=== PATIENT | male | born 1965 | race African-American/Black ===

== ENCOUNTER 2021-09-08 11:46 | Inpatient (IN) | payer OTHER ==
[2021-09-08 12:23] VITALS: BMI 29.0
[2021-09-08] MEDS ORDERED: MAGNESIUM CITRATE 300 ML BOTTLE PO PRN (13:08)
[2021-09-08] MEDS ORDERED: BENZOCAINE/MENTHOL (CHLORASEPTIC ) LOZENGE MM PRN (13:08)
[2021-09-08] MEDS ORDERED: MAGNESIUM HYDROX 2400MG/30ML ORAL SUSPENSION 30 ML CUP PO PRN (13:08)
[2021-09-08] MEDS ORDERED: IBUPROFEN 400 MG TABLET (FP) PO PRN (13:08)
[2021-09-08] MEDS ORDERED: LOPERAMIDE HCL 2 MG CAPSULE PO PRN (13:08)
[2021-09-08] MEDS ORDERED: chlordiazePOXIDE HCL 25 MG CAPSULE PO PRN (13:08)
[2021-09-08] MEDS ORDERED: MAG HYDROX/AL HYDROX/SIMETH 30 ML UNIT-DOSE CUP PO PRN (13:08)
[2021-09-08] MEDS ORDERED: ONDANSETRON *ODT* 4 MG TABLET SL PRN (13:08)
[2021-09-08] MEDS ORDERED: ACETAMINOPHEN 325 MG TABLET (FP) PO PRN ×2 (13:08)
[2021-09-08] MEDS ORDERED: IBUPROFEN 600 MG TABLET (FP) PO PRN (13:08)
[2021-09-08] MEDS ORDERED: DICYCLOMINE HCL 10 MG CAPSULE PO PRN (13:08)
[2021-09-08] MEDS ORDERED: BISMUTH SUBSALICYLATE 262 MG/15 ML BTL PO PRN (13:08)
[2021-09-08] MEDS: chlordiazePOXIDE HCL 25 MG CAPSULE PO SCH ×2 (18:31→22:36)
[2021-09-08] MEDS: hydrOXYzine PAMOATE 25 MG CAPSULE (FP) PO SCH ×3 (18:31→22:56)
[2021-09-08] MEDS: THIAMINE HCL 100 MG TABLET (FP) PO SCH (22:36)
[2021-09-08] MEDS: MELATONIN 5 MG TABLETS PO SCH (22:36)
[2021-09-08] MEDS: METHOCARBAMOL 500 MG TABLET PO PRN (22:36)
[2021-09-09] MEDS: chlordiazePOXIDE HCL 25 MG CAPSULE PO SCH ×4 (06:07→22:35)
[2021-09-09] MEDS: hydrOXYzine PAMOATE 25 MG CAPSULE (FP) PO SCH ×5 (06:11→22:35)
[2021-09-09] MEDS ORDERED: ALBUTEROL SO4 HFA INHALER IH PRN (08:31)
[2021-09-09 11:02] LABS: HEMATOCRIT 42.5 % (35.4-49); HEMOGLOBIN 13.8 GM/dL (11.7-16.9); MCH 28.9 pg (25.7-33.7); MCHC 32.5 g/dl (32.0-35.9); MEAN PLT VOLUME 10.1 fl (7.5-11.1); PLATELET COUNT 161 10^3/uL (134-434); RBC 4.77 M/mm3 (4.00-5.60); RDW 14.8 % (11.9-15.9); WHITE BLOOD COUNT 4.9 K/mm3 (4.0-10.0)
[2021-09-09] MEDS: NICOTINE 14 MG/24 HOURS TOPICAL PATCH TD SCH (11:02)
[2021-09-09] MEDS: PRENATAL VITAMINS W/ FOLIC ACID TABLET (FP) PO SCH (11:02)
[2021-09-09 11:24] LABS: BILIRUBIN,TOTAL 0.7 mg/dL (0.2-1); CREATININE 0.9 mg/dL (0.55-1.3)
[2021-09-09 11:25] LABS: BLOOD UREA NITROGEN 12.6 mg/dL (7-18)
[2021-09-09 11:26] LABS: ALBUMIN 3.7 g/dl (3.4-5.0); CALCIUM 9.3 mg/dL (8.5-10.1)
[2021-09-09 11:33] LABS: TOT PROT 7.6 g/dl (6.4-8.2)
[2021-09-09] MEDS: THIAMINE HCL 100 MG TABLET (FP) PO SCH (22:34)
[2021-09-09] MEDS: MELATONIN 5 MG TABLETS PO SCH (22:34)
[2021-09-09] MEDS: METHOCARBAMOL 500 MG TABLET PO PRN (22:34)
[2021-09-10] MEDS: hydrOXYzine PAMOATE 25 MG CAPSULE (FP) PO SCH ×2 (05:51→10:40)
[2021-09-10] MEDS: chlordiazePOXIDE HCL 25 MG CAPSULE PO SCH ×4 (05:52→22:48)
[2021-09-10] MEDS: PRENATAL VITAMINS W/ FOLIC ACID TABLET (FP) PO SCH (10:40)
[2021-09-10] MEDS: NICOTINE 14 MG/24 HOURS TOPICAL PATCH TD SCH (10:40)
[2021-09-10] MEDS: hydrOXYzine PAMOATE 25 MG CAPSULE (FP) PO PRN ×2 (18:19→22:47)
[2021-09-10] MEDS: THIAMINE HCL 100 MG TABLET (FP) PO SCH (22:47)
[2021-09-10] MEDS: MELATONIN 5 MG TABLETS PO SCH (22:47)
[2021-09-11] MEDS ORDERED: chlordiazePOXIDE HCL 10 MG CAPSULE PO PRN
[2021-09-11] MEDS: chlordiazePOXIDE HCL 10 MG CAPSULE PO SCH ×4 (05:47→22:30)
[2021-09-11] MEDS: NICOTINE 14 MG/24 HOURS TOPICAL PATCH TD SCH (10:56)
[2021-09-11] MEDS: PRENATAL VITAMINS W/ FOLIC ACID TABLET (FP) PO SCH (10:56)
[2021-09-11] MEDS: THIAMINE HCL 100 MG TABLET (FP) PO SCH (22:29)
[2021-09-11] MEDS: MELATONIN 5 MG TABLETS PO SCH (22:30)
[2021-09-12] MEDS: chlordiazePOXIDE HCL 10 MG CAPSULE PO SCH ×2 (06:18→17:48)
[2021-09-12] MEDS: PRENATAL VITAMINS W/ FOLIC ACID TABLET (FP) PO SCH (10:09)
[2021-09-12] MEDS: METHOCARBAMOL 500 MG TABLET PO PRN (10:10)
[2021-09-12] MEDS: hydrOXYzine PAMOATE 25 MG CAPSULE (FP) PO PRN (10:10)
[2021-09-12] MEDS: NICOTINE 14 MG/24 HOURS TOPICAL PATCH TD SCH (10:11)
[2021-09-12] MEDS ORDERED: NICOTINE 10 MG CARTRIDGE (INHALER) IH PRN (19:28)
[2021-09-12] MEDS: MELATONIN 5 MG TABLETS PO SCH (22:43)
[2021-09-12] MEDS: THIAMINE HCL 100 MG TABLET (FP) PO SCH (22:43)
[2021-09-13] MEDS ORDERED: chlordiazePOXIDE HCL 10 MG CAPSULE PO ONE (05:00)
[2021-09-13 09:33] VITALS: BP 134/79; PULSE 79; TEMP 98.1
[2021-09-13] MEDS: NICOTINE 14 MG/24 HOURS TOPICAL PATCH TD SCH (11:12)
[2021-09-13] MEDS: PRENATAL VITAMINS W/ FOLIC ACID TABLET (FP) PO SCH (11:13)
== END 2021-09-13 12:05 | disposition other institution (70) | DRG 774 ==
LOC: YASAS 11:46 → Y6N 15:12
PROVIDERS: ADMIT Allergy & Immunology; ATTEND Surgery
PROC: HZ2ZZZZ Detoxification Services for Substance Abuse Treatment (ICD-10-PCS; principal; 2021-09-08)
DX: F10.230 Alcohol dependence with withdrawal, uncomplicated (principal); F14.20 Cocaine dependence, uncomplicated; F17.210 Nicotine dependence, cigarettes, uncomplicated; E78.5 Hyperlipidemia, unspecified; I10 Essential (primary) hypertension; J45.909 Unspecified asthma, uncomplicated; M16.12 Unilateral primary osteoarthritis, left hip; R73.03 Prediabetes; Z99.89 Dependence on other enabling machines and devices; Z91.013 Allergy to seafood; Z91.14 Patient's other noncompliance with medication regimen
CPT/HCPCS: 36415; 80053; 85027; 86780; C9803-CS; U0003; U0005

== ENCOUNTER 2022-01-02 17:36 | Inpatient (IN) | payer OTHER ==
[2022-01-02 18:06] VITALS: BMI 29.4
[2022-01-02] MEDS ORDERED: guaiFENesin 200 MG/10 ML 10 ML UNIT-DOSE CUPS PO PRN (22:26)
[2022-01-02] MEDS ORDERED: MAGNESIUM CITRATE 300 ML BOTTLE PO PRN (22:26)
[2022-01-02] MEDS ORDERED: LOPERAMIDE HCL 2 MG CAPSULE PO PRN (22:26)
[2022-01-02] MEDS ORDERED: NICOTINE POLACRILEX 2 MG GUM BC PRN (22:26)
[2022-01-02] MEDS ORDERED: ACETAMINOPHEN 325 MG TABLET (FP) PO PRN (22:26)
[2022-01-02] MEDS ORDERED: MAGNESIUM HYDROX 2400MG/30ML ORAL SUSPENSION 30 ML CUP PO PRN (22:26)
[2022-01-02] MEDS ORDERED: P-EPHED 60MG/TRIPROLIDI 2.5MG TABLET PO PRN (22:26)
[2022-01-02] MEDS ORDERED: MAG HYDROX/AL HYDROX/SIMETH 30 ML UNIT-DOSE CUP PO PRN (22:26)
[2022-01-03] MEDS: MELATONIN 5 MG TABLETS PO SCH ×2 (00:40→21:29)
[2022-01-03] MEDS: IBUPROFEN 400 MG TABLET (FP) PO PRN ×2 (00:40→21:30)
[2022-01-03 09:25] LABS: EPI CELLS 17 /uL (0-25.1); HYALINE CASTS 2 /uL (0-3.1); URINE APPEARANCE CLEAR; URINE BACTERIA 648 /uL (0-1359); URINE BILIRUBIN NEGATIVE (NEGATIVE); URINE COLOR YELLOW; URINE GLUCOSE (UA) NEGATIVE (NEGATIVE); URINE KETONE NEGATIVE (NEGATIVE); URINE LEUK ESTERASE 2+ (NEGATIVE); URINE NITRITE NEGATIVE (NEGATIVE); URINE PROTEIN NEGATIVE (NEGATIVE); URINE RBC 3 /uL (0-23.9); URINE WBC 182 /uL (0-25.8)
[2022-01-03] MEDS: PRENATAL VITAMINS W/ FOLIC ACID TABLET (FP) PO SCH (09:44)
[2022-01-03] MEDS: NICOTINE 14 MG/24 HOURS TOPICAL PATCH TD SCH (09:45)
[2022-01-03 11:29] LABS: HEMATOCRIT 45.1 % (35.4-49); HEMOGLOBIN 14.6 GM/dL (11.7-16.9); MCH 29.4 pg (25.7-33.7); MCHC 32.3 g/dl (32.0-35.9); MEAN CELL VOLUME 91.2 fl (80-96); MEAN PLT VOLUME 9.7 fl (7.5-11.1); PLATELET COUNT 193 10^3/uL (134-434); RBC 4.94 M/mm3 (4.00-5.60); RDW 14.9 % (11.9-15.9); WHITE BLOOD COUNT 6.7 K/mm3 (4.0-10.0)
[2022-01-03 11:41] LABS: CALCIUM 8.8 mg/dL (8.5-10.1)
[2022-01-03 11:42] LABS: ALBUMIN 3.3 g/dl (3.4-5.0); BLOOD UREA NITROGEN 12.8 mg/dL (7-18)
[2022-01-03 11:44] LABS: CREATININE 0.9 mg/dL (0.55-1.3)
[2022-01-03 11:46] LABS: BILIRUBIN,TOTAL 0.5 mg/dL (0.2-1); TOT PROT 6.8 g/dl (6.4-8.2)
[2022-01-03 12:49] LABS: HIV INTERPRETATION NEGATIVE (NEGATIVE)
[2022-01-03] MEDS: THIAMINE HCL 100 MG TABLET (FP) PO SCH (21:29)
[2022-01-04] MEDS: NICOTINE 14 MG/24 HOURS TOPICAL PATCH TD SCH (09:52)
[2022-01-04] MEDS: PRENATAL VITAMINS W/ FOLIC ACID TABLET (FP) PO SCH (09:52)
[2022-01-04] MEDS: IBUPROFEN 400 MG TABLET (FP) PO PRN (09:53)
[2022-01-04] MEDS: MELATONIN 5 MG TABLETS PO SCH (21:27)
[2022-01-04] MEDS: THIAMINE HCL 100 MG TABLET (FP) PO SCH (21:28)
[2022-01-05] MEDS: IBUPROFEN 400 MG TABLET (FP) PO PRN (06:38)
[2022-01-05] MEDS: NICOTINE 14 MG/24 HOURS TOPICAL PATCH TD SCH (10:59)
[2022-01-05] MEDS: PRENATAL VITAMINS W/ FOLIC ACID TABLET (FP) PO SCH (11:00)
[2022-01-05] MEDS: MELATONIN 5 MG TABLETS PO SCH (21:33)
[2022-01-05] MEDS: THIAMINE HCL 100 MG TABLET (FP) PO SCH (21:33)
[2022-01-06] MEDS: NICOTINE 14 MG/24 HOURS TOPICAL PATCH TD SCH (09:51)
[2022-01-06] MEDS: PRENATAL VITAMINS W/ FOLIC ACID TABLET (FP) PO SCH (09:51)
[2022-01-06] MEDS: IBUPROFEN 400 MG TABLET (FP) PO PRN (09:53)
[2022-01-06] MEDS: THIAMINE HCL 100 MG TABLET (FP) PO SCH (21:21)
[2022-01-06] MEDS: MELATONIN 5 MG TABLETS PO SCH (21:21)
[2022-01-07] MEDS: PRENATAL VITAMINS W/ FOLIC ACID TABLET (FP) PO SCH (10:00)
[2022-01-07] MEDS: NICOTINE 14 MG/24 HOURS TOPICAL PATCH TD SCH (10:00)
[2022-01-07] MEDS: MELATONIN 5 MG TABLETS PO SCH (21:39)
[2022-01-07] MEDS: THIAMINE HCL 100 MG TABLET (FP) PO SCH (21:40)
[2022-01-08] MEDS: NICOTINE 14 MG/24 HOURS TOPICAL PATCH TD SCH (09:54)
[2022-01-08] MEDS: PRENATAL VITAMINS W/ FOLIC ACID TABLET (FP) PO SCH (09:54)
[2022-01-08] MEDS: THIAMINE HCL 100 MG TABLET (FP) PO SCH (21:23)
[2022-01-08] MEDS: MELATONIN 5 MG TABLETS PO SCH (21:23)
[2022-01-09] MEDS: PRENATAL VITAMINS W/ FOLIC ACID TABLET (FP) PO SCH (09:51)
[2022-01-09] MEDS: NICOTINE 14 MG/24 HOURS TOPICAL PATCH TD SCH (09:51)
[2022-01-09] MEDS: THIAMINE HCL 100 MG TABLET (FP) PO SCH (21:27)
[2022-01-09] MEDS: MELATONIN 5 MG TABLETS PO SCH (21:27)
[2022-01-10 07:22] VITALS: RESP 18
[2022-01-10] MEDS: PRENATAL VITAMINS W/ FOLIC ACID TABLET (FP) PO SCH (09:58)
[2022-01-10] MEDS: NICOTINE 14 MG/24 HOURS TOPICAL PATCH TD SCH (09:58)
[2022-01-10] MEDS: MELATONIN 5 MG TABLETS PO SCH (21:18)
[2022-01-10] MEDS: THIAMINE HCL 100 MG TABLET (FP) PO SCH (21:18)
[2022-01-11] MEDS: PRENATAL VITAMINS W/ FOLIC ACID TABLET (FP) PO SCH (09:59)
[2022-01-11] MEDS: NICOTINE 14 MG/24 HOURS TOPICAL PATCH TD SCH (09:59)
[2022-01-11] MEDS: MELATONIN 5 MG TABLETS PO SCH (21:29)
[2022-01-11] MEDS: THIAMINE HCL 100 MG TABLET (FP) PO SCH (21:29)
[2022-01-12] MEDS: PRENATAL VITAMINS W/ FOLIC ACID TABLET (FP) PO SCH (09:54)
[2022-01-12] MEDS: NICOTINE 14 MG/24 HOURS TOPICAL PATCH TD SCH (09:54)
[2022-01-12] MEDS: MELATONIN 5 MG TABLETS PO SCH (21:26)
[2022-01-12] MEDS: THIAMINE HCL 100 MG TABLET (FP) PO SCH (21:26)
[2022-01-13 07:02] VITALS: BP 113/77; PULSE 81; TEMP 97.3
[2022-01-13] MEDS: NICOTINE 14 MG/24 HOURS TOPICAL PATCH TD SCH (09:45)
[2022-01-13] MEDS: PRENATAL VITAMINS W/ FOLIC ACID TABLET (FP) PO SCH (09:45)
[2022-01-13] MEDS: IBUPROFEN 400 MG TABLET (FP) PO PRN (09:46)
== END 2022-01-13 10:15 | disposition home or self-care (01) | DRG 772 ==
LOC: YASAS 17:36 → Y5N 01-03
PROVIDERS: ADMIT Allergy & Immunology; ATTEND Psychiatry & Neurology Pain Medicine
PROC: HZ42ZZZ Group Counseling for Substance Abuse Treatment, Cognitive-Behavioral (ICD-10-PCS; principal; 2022-01-03)
DX: F10.20 Alcohol dependence, uncomplicated (principal); F14.20 Cocaine dependence, uncomplicated; F17.210 Nicotine dependence, cigarettes, uncomplicated; F32.A Depression, unspecified; F41.9 Anxiety disorder, unspecified; I10 Essential (primary) hypertension; E78.5 Hyperlipidemia, unspecified; H54.61 Unqualified visual loss, right eye, normal vision left eye; J45.909 Unspecified asthma, uncomplicated; R73.03 Prediabetes; M16.12 Unilateral primary osteoarthritis, left hip; Z99.89 Dependence on other enabling machines and devices; Z91.010 Allergy to peanuts; Z91.013 Allergy to seafood
CPT/HCPCS: 36415; 80053; 81003; 82962; 85027; 86780; 87389; 87811; C9803-CS; U0003; U0005

== ENCOUNTER 2022-02-18 13:24 | Inpatient (IN) | payer OTHER ==
[2022-02-18] MEDS ORDERED: hydrOXYzine PAMOATE 25 MG CAPSULE (FP) PO PRN (14:02)
[2022-02-18] MEDS ORDERED: ACETAMINOPHEN 325 MG TABLET (FP) PO PRN (14:02)
[2022-02-18] MEDS ORDERED: ONDANSETRON *ODT* 4 MG TABLET SL PRN (14:02)
[2022-02-18] MEDS ORDERED: diazePAM 5 MG TABLET PO PRN (14:02)
[2022-02-18] MEDS ORDERED: NICOTINE POLACRILEX 2 MG GUM BUC PRN (14:02)
[2022-02-18] MEDS ORDERED: NICOTINE 10 MG CARTRIDGE (INHALER) IH PRN (14:02)
[2022-02-18] MEDS ORDERED: BENZOCAINE/MENTHOL (CHLORASEPTIC ) LOZENGE MM PRN (14:02)
[2022-02-18] MEDS ORDERED: DICYCLOMINE HCL 10 MG CAPSULE PO PRN (14:02)
[2022-02-18] MEDS ORDERED: LOPERAMIDE HCL 2 MG CAPSULE PO PRN (14:02)
[2022-02-18] MEDS ORDERED: NICOTINE 7 MG/24 HOURS TOPICAL PATCH TD PRN (14:02)
[2022-02-18] MEDS ORDERED: IBUPROFEN 400 MG TABLET (FP) PO PRN (14:02)
[2022-02-18] MEDS ORDERED: MAGNESIUM HYDROX 2400MG/30ML ORAL SUSPENSION 30 ML CUP PO PRN (14:02)
[2022-02-18] MEDS ORDERED: METHOCARBAMOL 500 MG TABLET PO PRN (14:02)
[2022-02-18] MEDS ORDERED: MAG HYDROX/AL HYDROX/SIMETH 30 ML UNIT-DOSE CUP PO PRN (14:02)
[2022-02-18] MEDS ORDERED: BISMUTH SUBSALICYLATE 262 MG/15 ML BTL PO PRN (14:02)
[2022-02-18] MEDS ORDERED: POLYETHYLENE GLYCOL (HEALTHYLAX) 3350 17 GM PACKET PO PRN (14:02)
[2022-02-18 14:09] VITALS: BMI 29.4
[2022-02-18] MEDS: FAMOTIDINE 20 MG TABLET PO SCH (22:48)
[2022-02-18] MEDS: traZODone HCL 50 MG TABLET (FP) PO SCH (22:48)
[2022-02-18] MEDS: THIAMINE HCL 100 MG TABLET (FP) PO SCH (22:48)
[2022-02-18] MEDS: MELATONIN 5 MG TABLETS PO SCH (22:48)
[2022-02-18] MEDS: diazePAM 5 MG TABLET PO SCH (22:49)
[2022-02-19] MEDS: diazePAM 5 MG TABLET PO SCH ×2 (05:27→14:00)
[2022-02-19] MEDS: ACETAMINOPHEN 325 MG TABLET (FP) PO PRN (05:28)
[2022-02-19] MEDS ORDERED: ALBUTEROL SO4 HFA INHALER IH PRN (10:21)
[2022-02-19] MEDS: PRENATAL VITAMINS W/ FOLIC ACID TABLET (FP) PO SCH (10:40)
[2022-02-19] MEDS: FAMOTIDINE 20 MG TABLET PO SCH ×2 (10:41→21:56)
[2022-02-19 11:39] LABS: HEMATOCRIT 42.2 % (35.4-49); HEMOGLOBIN 13.2 GM/dL (11.7-16.9); MCH 28.6 pg (25.7-33.7); MCHC 31.3 g/dl (32.0-35.9); MEAN CELL VOLUME 91.6 fl (80-96); MEAN PLT VOLUME 9.4 fl (7.5-11.1); PLATELET COUNT 171 10^3/uL (134-434); RBC 4.61 M/mm3 (4.00-5.60); RDW 14.6 % (11.9-15.9); WHITE BLOOD COUNT 6.7 K/mm3 (4.0-10.0)
[2022-02-19 11:47] LABS: CALCIUM 8.6 mg/dL (8.5-10.1)
[2022-02-19 11:48] LABS: ALBUMIN 2.9 g/dl (3.4-5.0); BLOOD UREA NITROGEN 11.3 mg/dL (7-18)
[2022-02-19 11:51] LABS: CREATININE 0.9 mg/dL (0.55-1.3)
[2022-02-19 11:53] LABS: BILIRUBIN,TOTAL 0.3 mg/dL (0.2-1); TOT PROT 6.2 g/dl (6.4-8.2)
[2022-02-19] MEDS: FLUTICASONE/UMECLIDIN/VILANTER(200-62.5-25 TRELEGY ELLIPTA) INAHLER IH SCH (11:55)
[2022-02-19] MEDS ORDERED: FLU VACC QS2022-23(6MOS UP)/PF 60 MCG/0.5 ML SYRINGE IM ONE (12:00)
[2022-02-19] MEDS: traZODone HCL 50 MG TABLET (FP) PO SCH (21:56)
[2022-02-19] MEDS: MELATONIN 5 MG TABLETS PO SCH (21:56)
[2022-02-19] MEDS: THIAMINE HCL 100 MG TABLET (FP) PO SCH (21:56)
[2022-02-20] MEDS: diazePAM 5 MG TABLET PO SCH ×3 (06:46→22:30)
[2022-02-20] MEDS: PRENATAL VITAMINS W/ FOLIC ACID TABLET (FP) PO SCH (10:44)
[2022-02-20] MEDS: FAMOTIDINE 20 MG TABLET PO SCH ×2 (10:44→22:30)
[2022-02-20] MEDS: FLUTICASONE/UMECLIDIN/VILANTER(200-62.5-25 TRELEGY ELLIPTA) INAHLER IH SCH (10:45)
[2022-02-20] MEDS: LACTULOSE 20 GM/30 ML UDC (FOR ORAL USE ONLY) PO SCH ×3 (13:59→22:30)
[2022-02-20] MEDS: MELATONIN 5 MG TABLETS PO SCH (22:29)
[2022-02-20] MEDS: THIAMINE HCL 100 MG TABLET (FP) PO SCH (22:29)
[2022-02-20] MEDS: traZODone HCL 50 MG TABLET (FP) PO SCH (22:30)
[2022-02-21] MEDS: diazePAM 5 MG TABLET PO SCH ×3 (05:48→17:35)
[2022-02-21] MEDS: FAMOTIDINE 20 MG TABLET PO SCH ×2 (10:12→22:21)
[2022-02-21] MEDS: PRENATAL VITAMINS W/ FOLIC ACID TABLET (FP) PO SCH (10:12)
[2022-02-21] MEDS: LACTULOSE 20 GM/30 ML UDC (FOR ORAL USE ONLY) PO SCH ×4 (10:13→22:21)
[2022-02-21] MEDS: FLUTICASONE/UMECLIDIN/VILANTER(200-62.5-25 TRELEGY ELLIPTA) INAHLER IH SCH (10:13)
[2022-02-21] MEDS: ACETAMINOPHEN 325 MG TABLET (FP) PO PRN (10:14)
[2022-02-21 13:47] VITALS: RESP 18
[2022-02-21] MEDS: traZODone HCL 50 MG TABLET (FP) PO SCH (22:21)
[2022-02-21] MEDS: MELATONIN 5 MG TABLETS PO SCH (22:21)
[2022-02-21] MEDS: IBUPROFEN 600 MG TABLET (FP) PO PRN (22:21)
[2022-02-21] MEDS: THIAMINE HCL 100 MG TABLET (FP) PO SCH (22:21)
[2022-02-22] MEDS ORDERED: diazePAM 5 MG TABLET PO ONE (06:00)
[2022-02-22] MEDS: FAMOTIDINE 20 MG TABLET PO SCH (10:55)
[2022-02-22] MEDS: FLUTICASONE/UMECLIDIN/VILANTER(200-62.5-25 TRELEGY ELLIPTA) INAHLER IH SCH (10:55)
[2022-02-22] MEDS: LACTULOSE 20 GM/30 ML UDC (FOR ORAL USE ONLY) PO SCH ×2 (10:55→14:42)
[2022-02-22] MEDS: PRENATAL VITAMINS W/ FOLIC ACID TABLET (FP) PO SCH (10:55)
[2022-02-22] MEDS: IBUPROFEN 600 MG TABLET (FP) PO PRN (12:06)
[2022-02-22 13:22] VITALS: BP 132/86; PULSE 92; TEMP 96.8
== END 2022-02-22 15:27 | disposition other institution (70) | DRG 774 ==
LOC: YASAS 13:24 → Y6N 14:33
PROVIDERS: ADMIT Allergy & Immunology; ATTEND Surgery
PROC: HZ2ZZZZ Detoxification Services for Substance Abuse Treatment (ICD-10-PCS; principal; 2022-02-18)
DX: F10.230 Alcohol dependence with withdrawal, uncomplicated (principal); F14.20 Cocaine dependence, uncomplicated; F17.210 Nicotine dependence, cigarettes, uncomplicated; F19.24 Other psychoactive substance dependence with psychoactive substance-induced mood disorder; F39 Unspecified mood [affective] disorder; F31.9 Bipolar disorder, unspecified; F41.9 Anxiety disorder, unspecified; I10 Essential (primary) hypertension; J45.20 Mild intermittent asthma, uncomplicated; K21.9 Gastro-esophageal reflux disease without esophagitis; M16.12 Unilateral primary osteoarthritis, left hip; R79.89 Other specified abnormal findings of blood chemistry; R73.03 Prediabetes; Z91.013 Allergy to seafood; Z91.010 Allergy to peanuts; Z59.00 Homelessness unspecified
CPT/HCPCS: 36415; 80053; 82140; 85027; 86780; 87811; 93005; 93010; C9803-CS; U0003; U0005

== ENCOUNTER 2022-02-22 15:32 | Inpatient (IN) | payer OTHER ==
[2022-02-22] MEDS ORDERED: hydrOXYzine PAMOATE 25 MG CAPSULE (FP) PO PRN (15:46)
[2022-02-22] MEDS ORDERED: NICOTINE 10 MG CARTRIDGE (INHALER) IH PRN (15:46)
[2022-02-22] MEDS ORDERED: BENZOCAINE/MENTHOL (CHLORASEPTIC ) LOZENGE MM PRN (15:46)
[2022-02-22] MEDS ORDERED: MAG HYDROX/AL HYDROX/SIMETH 30 ML UNIT-DOSE CUP PO PRN (15:46)
[2022-02-22] MEDS ORDERED: guaiFENesin 200 MG/10 ML 10 ML UNIT-DOSE CUPS PO PRN (15:46)
[2022-02-22] MEDS ORDERED: POLYETHYLENE GLYCOL (HEALTHYLAX) 3350 17 GM PACKET PO PRN (15:46)
[2022-02-22] MEDS ORDERED: MAGNESIUM HYDROX 2400MG/30ML ORAL SUSPENSION 30 ML CUP PO PRN (15:46)
[2022-02-22] MEDS ORDERED: NICOTINE 7 MG/24 HOURS TOPICAL PATCH TD PRN (15:46)
[2022-02-22] MEDS ORDERED: P-EPHED 60MG/TRIPROLIDI 2.5MG TABLET PO PRN (15:46)
[2022-02-22] MEDS ORDERED: LOPERAMIDE HCL 2 MG CAPSULE PO PRN (15:46)
[2022-02-22] MEDS ORDERED: NICOTINE POLACRILEX 2 MG GUM BUC PRN (15:46)
[2022-02-22] MEDS ORDERED: FLUTICASONE/UMECLIDIN/VILANTER(200-62.5-25 TRELEGY ELLIPTA) INAHLER IH SCH (16:00)
[2022-02-22] MEDS: THIAMINE HCL 100 MG TABLET (FP) PO SCH (21:33)
[2022-02-22] MEDS: MELATONIN 5 MG TABLETS PO SCH (21:34)
[2022-02-23] MEDS ORDERED: PRENATAL VITAMINS W/ FOLIC ACID TABLET (FP) PO SCH (10:00)
[2022-02-23] MEDS: MELATONIN 5 MG TABLETS PO SCH (21:50)
[2022-02-23] MEDS: THIAMINE HCL 100 MG TABLET (FP) PO SCH (21:50)
[2022-02-24] MEDS ORDERED: LIDOCAINE 5% TOPICAL PATCH TP SCH (10:00)
[2022-02-24] MEDS: FAMOTIDINE 20 MG TABLET PO SCH ×2 (10:22→21:18)
[2022-02-24] MEDS: RIFAXIMIN 550 MG TABLET PO SCH ×2 (10:22→21:18)
[2022-02-24] MEDS: FLUTICASONE/UMECLIDIN/VILANTER(200-62.5-25 TRELEGY ELLIPTA) INAHLER IH SCH (10:23)
[2022-02-24] MEDS: IBUPROFEN 400 MG TABLET (FP) PO PRN (10:25)
[2022-02-24] MEDS ORDERED: LIDOCAINE 5% TOPICAL PATCH TP PRN (14:44)
[2022-02-24] MEDS: THIAMINE HCL 100 MG TABLET (FP) PO SCH (21:17)
[2022-02-24] MEDS: MELATONIN 5 MG TABLETS PO SCH (21:17)
[2022-02-24] MEDS: traZODone HCL 50 MG TABLET (FP) PO SCH (21:18)
[2022-02-24] MEDS: LIDOCAINE PATCH REMOVAL MC SCH (21:19)
[2022-02-25] MEDS: FLUTICASONE/UMECLIDIN/VILANTER(200-62.5-25 TRELEGY ELLIPTA) INAHLER IH SCH (06:53)
[2022-02-25] MEDS: FAMOTIDINE 20 MG TABLET PO SCH ×3 (09:54→21:32)
[2022-02-25] MEDS: RIFAXIMIN 550 MG TABLET PO SCH ×3 (09:54→21:32)
[2022-02-25] MEDS: IBUPROFEN 400 MG TABLET (FP) PO PRN ×2 (09:55→21:33)
[2022-02-25] MEDS: traZODone HCL 50 MG TABLET (FP) PO SCH (21:26)
[2022-02-25] MEDS: MELATONIN 5 MG TABLETS PO SCH (21:27)
[2022-02-25] MEDS: LIDOCAINE PATCH REMOVAL MC SCH (21:27)
[2022-02-25] MEDS: THIAMINE HCL 100 MG TABLET (FP) PO SCH (21:27)
[2022-02-26] MEDS: FLUTICASONE/UMECLIDIN/VILANTER(200-62.5-25 TRELEGY ELLIPTA) INAHLER IH SCH (07:08)
[2022-02-26] MEDS: RIFAXIMIN 550 MG TABLET PO SCH ×2 (10:25→21:20)
[2022-02-26] MEDS: FAMOTIDINE 20 MG TABLET PO SCH ×2 (10:25→21:20)
[2022-02-26] MEDS: THIAMINE HCL 100 MG TABLET (FP) PO SCH (21:19)
[2022-02-26] MEDS: IBUPROFEN 400 MG TABLET (FP) PO PRN (21:20)
[2022-02-26] MEDS: MELATONIN 5 MG TABLETS PO SCH (21:24)
[2022-02-26] MEDS: LIDOCAINE PATCH REMOVAL MC SCH (21:24)
[2022-02-26] MEDS: traZODone HCL 50 MG TABLET (FP) PO SCH (21:24)
[2022-02-27] MEDS: FLUTICASONE/UMECLIDIN/VILANTER(200-62.5-25 TRELEGY ELLIPTA) INAHLER IH SCH (07:56)
[2022-02-27] MEDS: RIFAXIMIN 550 MG TABLET PO SCH ×2 (10:01→21:20)
[2022-02-27] MEDS: FAMOTIDINE 20 MG TABLET PO SCH ×2 (10:02→21:21)
[2022-02-27] MEDS: THIAMINE HCL 100 MG TABLET (FP) PO SCH (21:20)
[2022-02-27] MEDS: traZODone HCL 50 MG TABLET (FP) PO SCH (21:21)
[2022-02-27] MEDS: LIDOCAINE PATCH REMOVAL MC SCH (21:21)
[2022-02-27] MEDS: MELATONIN 5 MG TABLETS PO SCH (21:21)
[2022-02-27] MEDS: ACETAMINOPHEN 325 MG TABLET (FP) PO PRN (21:23)
[2022-02-28] MEDS: FLUTICASONE/UMECLIDIN/VILANTER(200-62.5-25 TRELEGY ELLIPTA) INAHLER IH SCH (09:56)
[2022-02-28] MEDS: RIFAXIMIN 550 MG TABLET PO SCH ×2 (09:56→21:20)
[2022-02-28] MEDS: FAMOTIDINE 20 MG TABLET PO SCH ×2 (09:56→21:20)
[2022-02-28] MEDS: MELATONIN 5 MG TABLETS PO SCH (21:20)
[2022-02-28] MEDS: THIAMINE HCL 100 MG TABLET (FP) PO SCH (21:20)
[2022-02-28] MEDS: traZODone HCL 50 MG TABLET (FP) PO SCH (21:20)
[2022-02-28] MEDS: ACETAMINOPHEN 325 MG TABLET (FP) PO PRN (21:22)
[2022-02-28] MEDS: LIDOCAINE PATCH REMOVAL MC SCH (22:26)
[2022-03-01] MEDS: FLUTICASONE/UMECLIDIN/VILANTER(200-62.5-25 TRELEGY ELLIPTA) INAHLER IH SCH (10:02)
[2022-03-01] MEDS: FAMOTIDINE 20 MG TABLET PO SCH ×2 (10:02→21:18)
[2022-03-01] MEDS: PRENATAL VITAMINS W/ FOLIC ACID TABLET (FP) PO PRN (10:02)
[2022-03-01] MEDS: IBUPROFEN 400 MG TABLET (FP) PO PRN (10:04)
[2022-03-01] MEDS: MELATONIN 5 MG TABLETS PO SCH (21:18)
[2022-03-01] MEDS: THIAMINE HCL 100 MG TABLET (FP) PO SCH (21:18)
[2022-03-01] MEDS: traZODone HCL 50 MG TABLET (FP) PO SCH (21:18)
[2022-03-01] MEDS: LIDOCAINE PATCH REMOVAL MC SCH (21:18)
[2022-03-02 05:58] VITALS: BP 109/68; PULSE 84; RESP 19; TEMP 97.4
[2022-03-02] MEDS: FLUTICASONE/UMECLIDIN/VILANTER(200-62.5-25 TRELEGY ELLIPTA) INAHLER IH SCH (09:26)
[2022-03-02] MEDS: FAMOTIDINE 20 MG TABLET PO SCH ×2 (09:27→21:10)
[2022-03-02] MEDS: LIDOCAINE PATCH REMOVAL MC SCH (21:10)
[2022-03-02] MEDS: MELATONIN 5 MG TABLETS PO SCH (21:10)
[2022-03-02] MEDS: THIAMINE HCL 100 MG TABLET (FP) PO SCH (21:10)
[2022-03-02] MEDS: traZODone HCL 50 MG TABLET (FP) PO SCH (21:11)
[2022-03-03] MEDS: FAMOTIDINE 20 MG TABLET PO SCH (09:02)
[2022-03-03] MEDS: PRENATAL VITAMINS W/ FOLIC ACID TABLET (FP) PO PRN (09:02)
[2022-03-03] MEDS: FLUTICASONE/UMECLIDIN/VILANTER(200-62.5-25 TRELEGY ELLIPTA) INAHLER IH SCH (09:02)
[2022-03-03] MEDS: IBUPROFEN 400 MG TABLET (FP) PO PRN (09:03)
== END 2022-03-03 09:26 | disposition home or self-care (01) | DRG 772 ==
LOC: YASAS 15:32 → Y3E 15:33
PROVIDERS: ADMIT Allergy & Immunology; ATTEND Psychiatry & Neurology Pain Medicine
PROC: HZ42ZZZ Group Counseling for Substance Abuse Treatment, Cognitive-Behavioral (ICD-10-PCS; principal; 2022-02-22)
DX: F10.20 Alcohol dependence, uncomplicated (principal); F14.20 Cocaine dependence, uncomplicated; F12.20 Cannabis dependence, uncomplicated; F17.210 Nicotine dependence, cigarettes, uncomplicated; F19.24 Other psychoactive substance dependence with psychoactive substance-induced mood disorder; F41.9 Anxiety disorder, unspecified; E72.20 Disorder of urea cycle metabolism, unspecified; E78.5 Hyperlipidemia, unspecified; I10 Essential (primary) hypertension; J45.909 Unspecified asthma, uncomplicated; M16.12 Unilateral primary osteoarthritis, left hip; R79.89 Other specified abnormal findings of blood chemistry; R94.5 Abnormal results of liver function studies; Z99.89 Dependence on other enabling machines and devices
CPT/HCPCS: 36415; 86803

== ENCOUNTER 2022-04-06 13:48 | Inpatient (IN) | payer OTHER ==
[2022-04-06 16:56] VITALS: BMI 29.9
[2022-04-06] MEDS ORDERED: LOPERAMIDE HCL 2 MG CAPSULE PO PRN (17:08)
[2022-04-06] MEDS ORDERED: BENZOCAINE/MENTHOL (CHLORASEPTIC ) LOZENGE MM PRN (17:08)
[2022-04-06] MEDS ORDERED: P-EPHED 60MG/TRIPROLIDI 2.5MG TABLET PO PRN (17:08)
[2022-04-06] MEDS ORDERED: BISMUTH SUBSALICYLATE 524 MG/30 ML PO PRN (17:08)
[2022-04-06] MEDS ORDERED: ONDANSETRON *ODT* 4 MG TABLET SL PRN (17:08)
[2022-04-06] MEDS ORDERED: MAG HYDROX/AL HYDROX/SIMETH 30 ML UNIT-DOSE CUP PO PRN (17:08)
[2022-04-06] MEDS ORDERED: DICYCLOMINE HCL 10 MG CAPSULE PO PRN (17:08)
[2022-04-06] MEDS ORDERED: chlordiazePOXIDE HCL 25 MG CAPSULE PO PRN (17:08)
[2022-04-06] MEDS ORDERED: guaiFENesin 200 MG/10 ML 10 ML UNIT-DOSE CUPS PO PRN (17:08)
[2022-04-06] MEDS ORDERED: POLYETHYLENE GLYCOL (HEALTHYLAX) 3350 17 GM PACKET PO PRN (17:08)
[2022-04-06] MEDS ORDERED: IBUPROFEN 600 MG TABLET (FP) PO PRN (17:08)
[2022-04-06] MEDS ORDERED: MAGNESIUM HYDROX 2400MG/30ML ORAL SUSPENSION 30 ML CUP PO PRN (17:08)
[2022-04-06] MEDS ORDERED: ACETAMINOPHEN 325 MG TABLET (FP) PO PRN ×2 (17:08)
[2022-04-06] MEDS: chlordiazePOXIDE HCL 25 MG CAPSULE PO SCH ×2 (18:46→22:45)
[2022-04-06] MEDS: THIAMINE HCL 100 MG TABLET (FP) PO SCH (22:44)
[2022-04-06] MEDS: IBUPROFEN 400 MG TABLET (FP) PO PRN (22:44)
[2022-04-06] MEDS: METHOCARBAMOL 500 MG TABLET PO PRN (22:45)
[2022-04-07] MEDS: chlordiazePOXIDE HCL 25 MG CAPSULE PO SCH ×4 (06:13→22:48)
[2022-04-07] MEDS: PRENATAL VITAMINS W/ FOLIC ACID TABLET (FP) PO SCH (10:44)
[2022-04-07] MEDS: METHOCARBAMOL 500 MG TABLET PO PRN ×2 (10:44→18:00)
[2022-04-07 12:15] LABS: HEMATOCRIT 42.8 % (35.4-49); HEMOGLOBIN 13.8 GM/dL (11.7-16.9); MCH 29.4 pg (25.7-33.7); MCHC 32.2 g/dl (32.0-35.9); MEAN CELL VOLUME 91.3 fl (80-96); MEAN PLT VOLUME 10.1 fl (7.5-11.1); PLATELET COUNT 158 10^3/uL (134-434); RBC 4.68 M/mm3 (4.00-5.60); RDW 14.8 % (11.9-15.9); WHITE BLOOD COUNT 6.9 K/mm3 (4.0-10.0)
[2022-04-07 12:51] LABS: BLOOD UREA NITROGEN 14.1 mg/dL (7-18); CALCIUM 8.4 mg/dL (8.5-10.1)
[2022-04-07 12:54] LABS: CREATININE 0.9 mg/dL (0.55-1.3)
[2022-04-07 12:56] LABS: BILIRUBIN,TOTAL 0.5 mg/dL (0.2-1); TOT PROT 6.2 g/dl (6.4-8.2)
[2022-04-07] MEDS: IBUPROFEN 400 MG TABLET (FP) PO PRN (18:00)
[2022-04-07] MEDS: THIAMINE HCL 100 MG TABLET (FP) PO SCH (22:47)
[2022-04-08] MEDS: chlordiazePOXIDE HCL 25 MG CAPSULE PO SCH ×4 (06:08→22:00)
[2022-04-08] MEDS: PRENATAL VITAMINS W/ FOLIC ACID TABLET (FP) PO SCH (09:59)
[2022-04-08] MEDS: METHOCARBAMOL 500 MG TABLET PO PRN (09:59)
[2022-04-08] MEDS: THIAMINE HCL 100 MG TABLET (FP) PO SCH (21:59)
[2022-04-09] MEDS ORDERED: chlordiazePOXIDE HCL 10 MG CAPSULE PO PRN
[2022-04-09] MEDS: chlordiazePOXIDE HCL 10 MG CAPSULE PO SCH ×4 (06:24→22:30)
[2022-04-09] MEDS: METHOCARBAMOL 500 MG TABLET PO PRN (10:44)
[2022-04-09] MEDS: PRENATAL VITAMINS W/ FOLIC ACID TABLET (FP) PO SCH (10:44)
[2022-04-09] MEDS: THIAMINE HCL 100 MG TABLET (FP) PO SCH (22:30)
[2022-04-09] MEDS: FAMOTIDINE 20 MG TABLET PO SCH (22:30)
[2022-04-10] MEDS: chlordiazePOXIDE HCL 10 MG CAPSULE PO SCH ×2 (05:05→17:59)
[2022-04-10] MEDS: PRENATAL VITAMINS W/ FOLIC ACID TABLET (FP) PO SCH (10:48)
[2022-04-10] MEDS: FAMOTIDINE 20 MG TABLET PO SCH ×2 (10:48→22:43)
[2022-04-10] MEDS: THIAMINE HCL 100 MG TABLET (FP) PO SCH (22:43)
[2022-04-11] MEDS ORDERED: chlordiazePOXIDE HCL 10 MG CAPSULE PO ONE (05:00)
[2022-04-11] MEDS: FAMOTIDINE 20 MG TABLET PO SCH ×2 (10:42→22:53)
[2022-04-11] MEDS: PRENATAL VITAMINS W/ FOLIC ACID TABLET (FP) PO SCH (10:42)
[2022-04-11] MEDS: THIAMINE HCL 100 MG TABLET (FP) PO SCH (22:53)
[2022-04-12 06:35] VITALS: RESP 18
[2022-04-12] MEDS: FAMOTIDINE 20 MG TABLET PO SCH (10:38)
[2022-04-12] MEDS: PRENATAL VITAMINS W/ FOLIC ACID TABLET (FP) PO SCH (10:38)
[2022-04-12 13:20] VITALS: BP 110/70; PULSE 84; TEMP 98.4
== END 2022-04-12 14:10 | disposition home or self-care (01) | DRG 774 ==
LOC: YASAS 13:48 → Y3N 17:53 → Y6N 23:38
PROVIDERS: ADMIT Allergy & Immunology; ATTEND Surgery
PROC: HZ2ZZZZ Detoxification Services for Substance Abuse Treatment (ICD-10-PCS; principal; 2022-04-06)
DX: F10.230 Alcohol dependence with withdrawal, uncomplicated (principal); F14.20 Cocaine dependence, uncomplicated; F17.210 Nicotine dependence, cigarettes, uncomplicated; F41.9 Anxiety disorder, unspecified; F32.A Depression, unspecified; U07.1 COVID-19; H54.61 Unqualified visual loss, right eye, normal vision left eye; I10 Essential (primary) hypertension; J45.909 Unspecified asthma, uncomplicated; K21.9 Gastro-esophageal reflux disease without esophagitis; M16.12 Unilateral primary osteoarthritis, left hip; M17.0 Bilateral primary osteoarthritis of knee; Z86.73 Personal history of transient ischemic attack (TIA), and cerebral infarction without residual deficits
CPT/HCPCS: 36415; 80053; 85027; 86780; C9803-CS; U0003; U0005

== ENCOUNTER 2022-09-02 14:46 | Inpatient (IN) | payer OTHER ==
[2022-09-02 15:56] VITALS: BMI 27.1
[2022-09-02] MEDS ORDERED: LOPERAMIDE HCL 2 MG CAPSULE PO PRN (16:34)
[2022-09-02] MEDS ORDERED: POLYETHYLENE GLYCOL (HEALTHYLAX) 3350 17 GM PACKET PO PRN (16:34)
[2022-09-02] MEDS ORDERED: DICYCLOMINE HCL 10 MG CAPSULE PO PRN (16:34)
[2022-09-02] MEDS ORDERED: ONDANSETRON *ODT* 4 MG TABLET SL PRN (16:34)
[2022-09-02] MEDS ORDERED: guaiFENesin 600 MG TABLET.ER (FP) PO PRN (16:34)
[2022-09-02] MEDS ORDERED: MAGNESIUM HYDROX 2400MG/30ML ORAL SUSPENSION 30 ML CUP PO PRN (16:34)
[2022-09-02] MEDS ORDERED: ACETAMINOPHEN 325 MG TABLET (FP) PO PRN (16:34)
[2022-09-02] MEDS ORDERED: BISMUTH SUBSALICYLATE 524 MG/30 ML PO PRN (16:34)
[2022-09-02] MEDS ORDERED: P-EPHED 60MG/TRIPROLIDI 2.5MG TABLET PO PRN (16:34)
[2022-09-02] MEDS ORDERED: MAG HYDROX/AL HYDROX/SIMETH 30 ML UNIT-DOSE CUP PO PRN (16:34)
[2022-09-02] MEDS ORDERED: NICOTINE POLACRILEX 2 MG GUM BUC PRN (16:34)
[2022-09-02] MEDS ORDERED: BENZONATATE 200 MG CAPSULE PO PRN (16:34)
[2022-09-02] MEDS ORDERED: IBUPROFEN 400 MG TABLET (FP) PO PRN (16:34)
[2022-09-02] MEDS ORDERED: BENZOCAINE/MENTHOL (CHLORASEPTIC ) LOZENGE MM PRN (16:34)
[2022-09-02] MEDS: MELATONIN 5 MG TABLETS PO SCH (22:55)
[2022-09-02] MEDS: FAMOTIDINE 20 MG TABLET PO SCH (22:56)
[2022-09-02] MEDS: THIAMINE HCL 100 MG TABLET (FP) PO SCH (22:56)
[2022-09-03] MEDS ORDERED: ALBUTEROL SO4 HFA INHALER IH PRN (09:09)
[2022-09-03 09:41] LABS: HEMATOCRIT 44.8 % (35.4-49); HEMOGLOBIN 14.8 GM/dL (11.7-16.9); MCHC 32.9 g/dl (32.0-35.9); MEAN PLT VOLUME 9.6 fl (7.5-11.1); PLATELET COUNT 141 10^3/uL (134-434); RBC 5.09 M/mm3 (4.00-5.60); RDW 14.8 % (11.9-15.9); WHITE BLOOD COUNT 6.2 K/mm3 (4.0-10.0)
[2022-09-03 09:48] LABS: POTASSIUM 3.6 mmol/L (3.5-5.1)
[2022-09-03 09:59] LABS: BLOOD UREA NITROGEN 15.6 mg/dL (7-18)
[2022-09-03 10:00] LABS: ALBUMIN 3.4 g/dl (3.4-5.0)
[2022-09-03 10:03] LABS: BILIRUBIN,TOTAL 0.2 mg/dL (0.2-1); TOT PROT 7.8 g/dl (6.4-8.2)
[2022-09-03] MEDS ORDERED: chlordiazePOXIDE HCL 25 MG CAPSULE PO PRN (10:03)
[2022-09-03] MEDS: PRENATAL VITAMINS W/ FOLIC ACID TABLET (FP) PO SCH (10:06)
[2022-09-03] MEDS: hydrOXYzine PAMOATE 25 MG CAPSULE (FP) PO PRN (10:06)
[2022-09-03] MEDS: FAMOTIDINE 20 MG TABLET PO SCH ×2 (10:06→23:21)
[2022-09-03] MEDS: IBUPROFEN 600 MG TABLET (FP) PO PRN (10:06)
[2022-09-03] MEDS: chlordiazePOXIDE HCL 25 MG CAPSULE PO SCH ×3 (10:07→23:20)
[2022-09-03] MEDS: THIAMINE HCL 100 MG TABLET (FP) PO SCH (23:21)
[2022-09-03] MEDS: MELATONIN 5 MG TABLETS PO SCH (23:21)
[2022-09-04] MEDS: chlordiazePOXIDE HCL 25 MG CAPSULE PO SCH ×4 (05:24→22:45)
[2022-09-04] MEDS: PRENATAL VITAMINS W/ FOLIC ACID TABLET (FP) PO SCH (10:10)
[2022-09-04] MEDS: FAMOTIDINE 20 MG TABLET PO SCH ×2 (10:10→22:45)
[2022-09-04] MEDS: IBUPROFEN 600 MG TABLET (FP) PO PRN (17:34)
[2022-09-04] MEDS: MELATONIN 5 MG TABLETS PO SCH (22:44)
[2022-09-04] MEDS: THIAMINE HCL 100 MG TABLET (FP) PO SCH (22:45)
[2022-09-05] MEDS: chlordiazePOXIDE HCL 25 MG CAPSULE PO SCH ×4 (06:00→22:41)
[2022-09-05] MEDS: PRENATAL VITAMINS W/ FOLIC ACID TABLET (FP) PO SCH (10:37)
[2022-09-05] MEDS: FAMOTIDINE 20 MG TABLET PO SCH ×2 (10:38→22:41)
[2022-09-05] MEDS: IBUPROFEN 600 MG TABLET (FP) PO PRN (10:38)
[2022-09-05] MEDS: MELATONIN 5 MG TABLETS PO SCH (22:40)
[2022-09-05] MEDS: hydrOXYzine PAMOATE 25 MG CAPSULE (FP) PO PRN (22:41)
[2022-09-05] MEDS: THIAMINE HCL 100 MG TABLET (FP) PO SCH (22:45)
[2022-09-06] MEDS ORDERED: chlordiazePOXIDE HCL 10 MG CAPSULE PO PRN
[2022-09-06] MEDS: chlordiazePOXIDE HCL 10 MG CAPSULE PO SCH ×4 (05:57→23:25)
[2022-09-06] MEDS: PRENATAL VITAMINS W/ FOLIC ACID TABLET (FP) PO SCH (10:58)
[2022-09-06] MEDS: FAMOTIDINE 20 MG TABLET PO SCH ×2 (10:59→23:26)
[2022-09-06] MEDS: THIAMINE HCL 100 MG TABLET (FP) PO SCH (23:26)
[2022-09-06] MEDS: MELATONIN 5 MG TABLETS PO SCH (23:26)
[2022-09-07] MEDS: chlordiazePOXIDE HCL 10 MG CAPSULE PO SCH ×2 (06:00→17:37)
[2022-09-07] MEDS: FAMOTIDINE 20 MG TABLET PO SCH ×2 (10:36→22:45)
[2022-09-07] MEDS: PRENATAL VITAMINS W/ FOLIC ACID TABLET (FP) PO SCH (10:36)
[2022-09-07] MEDS: IBUPROFEN 600 MG TABLET (FP) PO PRN ×2 (10:38→17:39)
[2022-09-07] MEDS: THIAMINE HCL 100 MG TABLET (FP) PO SCH (22:45)
[2022-09-07] MEDS: MELATONIN 5 MG TABLETS PO SCH (22:45)
[2022-09-08] MEDS ORDERED: chlordiazePOXIDE HCL 10 MG CAPSULE PO ONE (05:00)
[2022-09-08 09:15] VITALS: BP 130/71; PULSE 83; RESP 18; TEMP 96.9
[2022-09-08] MEDS: PRENATAL VITAMINS W/ FOLIC ACID TABLET (FP) PO SCH (10:39)
[2022-09-08] MEDS: FAMOTIDINE 20 MG TABLET PO SCH (10:40)
== END 2022-09-08 09:55 | disposition other institution (70) | DRG 774 ==
LOC: YASAS 14:46 → Y6N 17:57
PROVIDERS: ADMIT Allergy & Immunology; ATTEND Surgery
PROC: HZ2ZZZZ Detoxification Services for Substance Abuse Treatment (ICD-10-PCS; principal; 2022-09-02)
DX: F10.230 Alcohol dependence with withdrawal, uncomplicated (principal); F14.20 Cocaine dependence, uncomplicated; F17.210 Nicotine dependence, cigarettes, uncomplicated; F31.9 Bipolar disorder, unspecified; F19.24 Other psychoactive substance dependence with psychoactive substance-induced mood disorder; I10 Essential (primary) hypertension; J45.909 Unspecified asthma, uncomplicated; K21.9 Gastro-esophageal reflux disease without esophagitis; H54.61 Unqualified visual loss, right eye, normal vision left eye; S05.7 Avulsion of eye; S05.8X1D Other injuries of right eye and orbit, subsequent encounter; W34.09XD Accidental discharge from other specified firearms, subsequent encounter; Z86.73 Personal history of transient ischemic attack (TIA), and cerebral infarction without residual deficits
CPT/HCPCS: 36415; 80053; 85027; 86780; 87635

== ENCOUNTER 2022-10-27 15:03 | Inpatient (IN) | payer OTHER ==
[2022-10-27 16:52] VITALS: BMI 27.8
[2022-10-27] MEDS ORDERED: DICYCLOMINE HCL 10 MG CAPSULE PO PRN (18:03)
[2022-10-27] MEDS ORDERED: BISMUTH SUBSALICYLATE 524 MG/30 ML PO PRN (18:03)
[2022-10-27] MEDS ORDERED: LOPERAMIDE HCL 2 MG CAPSULE PO PRN (18:03)
[2022-10-27] MEDS ORDERED: NICOTINE POLACRILEX 2 MG GUM BUC PRN (18:03)
[2022-10-27] MEDS ORDERED: ACETAMINOPHEN 325 MG TABLET (FP) PO PRN (18:03)
[2022-10-27] MEDS ORDERED: P-EPHED 60MG/TRIPROLIDI 2.5MG TABLET PO PRN (18:03)
[2022-10-27] MEDS ORDERED: MAG HYDROX/AL HYDROX/SIMETH 30 ML UNIT-DOSE CUP PO PRN (18:03)
[2022-10-27] MEDS ORDERED: POLYETHYLENE GLYCOL (HEALTHYLAX) 3350 17 GM PACKET PO PRN (18:03)
[2022-10-27] MEDS ORDERED: BENZONATATE 200 MG CAPSULE PO PRN (18:03)
[2022-10-27] MEDS ORDERED: IBUPROFEN 400 MG TABLET (FP) PO PRN (18:03)
[2022-10-27] MEDS ORDERED: MAGNESIUM HYDROX 2400MG/30ML ORAL SUSPENSION 30 ML CUP PO PRN (18:03)
[2022-10-27] MEDS ORDERED: guaiFENesin 600 MG TABLET.ER (FP) PO PRN (18:03)
[2022-10-27] MEDS ORDERED: ONDANSETRON *ODT* 4 MG TABLET SL PRN (18:03)
[2022-10-27] MEDS ORDERED: BENZOCAINE/MENTHOL (CHLORASEPTIC ) LOZENGE MM PRN (18:03)
[2022-10-27] MEDS: METHOCARBAMOL 500 MG TABLET PO PRN (19:24)
[2022-10-27] MEDS: IBUPROFEN 600 MG TABLET (FP) PO PRN (19:24)
[2022-10-27] MEDS: hydrOXYzine PAMOATE 25 MG CAPSULE (FP) PO PRN (22:28)
[2022-10-27] MEDS: THIAMINE HCL 100 MG TABLET (FP) PO SCH (22:28)
[2022-10-27] MEDS: MELATONIN 5 MG TABLETS PO SCH (22:29)
[2022-10-28] MEDS ORDERED: ALBUTEROL SO4 HFA INHALER IH PRN (09:56)
[2022-10-28 10:37] LABS: HEMATOCRIT 42.2 % (35.4-49); MCH 29.2 pg (25.7-33.7); MCHC 33.1 g/dl (32.0-35.9); MEAN CELL VOLUME 88.2 fl (80-96); MEAN PLT VOLUME 9.1 fl (7.5-11.1); PLATELET COUNT 150 10^3/uL (134-434); RBC 4.79 M/mm3 (4.00-5.60); RDW 15.2 % (11.9-15.9); WHITE BLOOD COUNT 5.2 K/mm3 (4.0-10.0)
[2022-10-28 10:42] LABS: POTASSIUM 3.9 mmol/L (3.5-5.1)
[2022-10-28 10:44] LABS: CALCIUM 8.1 mg/dL (8.5-10.1)
[2022-10-28 10:45] LABS: ALBUMIN 2.9 g/dl (3.4-5.0); BLOOD UREA NITROGEN 11.8 mg/dL (7-18)
[2022-10-28] MEDS: IBUPROFEN 600 MG TABLET (FP) PO PRN ×2 (10:45→17:35)
[2022-10-28] MEDS: FAMOTIDINE 20 MG TABLET PO SCH ×2 (10:45→22:40)
[2022-10-28] MEDS: PRENATAL VITAMINS W/ FOLIC ACID TABLET (FP) PO SCH (10:46)
[2022-10-28 10:48] LABS: CREATININE 0.8 mg/dL (0.55-1.3)
[2022-10-28 10:50] LABS: BILIRUBIN,TOTAL 0.2 mg/dL (0.2-1); TOT PROT 6.2 g/dl (6.4-8.2)
[2022-10-28] MEDS ORDERED: diazePAM 5 MG TABLET PO PRN (22:39)
[2022-10-28] MEDS: hydrOXYzine PAMOATE 25 MG CAPSULE (FP) PO PRN (22:39)
[2022-10-28] MEDS: METHOCARBAMOL 500 MG TABLET PO PRN (22:39)
[2022-10-28] MEDS: MELATONIN 5 MG TABLETS PO SCH (22:39)
[2022-10-28] MEDS: THIAMINE HCL 100 MG TABLET (FP) PO SCH (22:40)
[2022-10-28] MEDS: diazePAM 5 MG TABLET PO SCH (22:50)
[2022-10-29] MEDS: diazePAM 5 MG TABLET PO SCH ×5 (05:56→22:26)
[2022-10-29] MEDS: FAMOTIDINE 20 MG TABLET PO SCH ×2 (10:11→22:25)
[2022-10-29] MEDS: IBUPROFEN 600 MG TABLET (FP) PO PRN ×2 (10:12→18:12)
[2022-10-29] MEDS: PRENATAL VITAMINS W/ FOLIC ACID TABLET (FP) PO SCH (10:12)
[2022-10-29] MEDS: THIAMINE HCL 100 MG TABLET (FP) PO SCH (22:25)
[2022-10-29] MEDS: hydrOXYzine PAMOATE 25 MG CAPSULE (FP) PO PRN (22:25)
[2022-10-29] MEDS: MELATONIN 5 MG TABLETS PO SCH (22:25)
[2022-10-29] MEDS: METHOCARBAMOL 500 MG TABLET PO PRN (22:25)
[2022-10-30] MEDS: diazePAM 5 MG TABLET PO SCH ×3 (05:52→22:24)
[2022-10-30] MEDS: FAMOTIDINE 20 MG TABLET PO SCH ×2 (10:48→22:25)
[2022-10-30] MEDS: PRENATAL VITAMINS W/ FOLIC ACID TABLET (FP) PO SCH (10:48)
[2022-10-30] MEDS: THIAMINE HCL 100 MG TABLET (FP) PO SCH (22:25)
[2022-10-30] MEDS: MELATONIN 5 MG TABLETS PO SCH (22:25)
[2022-10-30] MEDS: IBUPROFEN 600 MG TABLET (FP) PO PRN (22:26)
[2022-10-30] MEDS: METHOCARBAMOL 500 MG TABLET PO PRN (22:27)
[2022-10-31] MEDS: diazePAM 5 MG TABLET PO SCH ×2 (05:40→17:38)
[2022-10-31] MEDS: FAMOTIDINE 20 MG TABLET PO SCH ×2 (10:22→22:28)
[2022-10-31] MEDS: PRENATAL VITAMINS W/ FOLIC ACID TABLET (FP) PO SCH (10:22)
[2022-10-31] MEDS: IBUPROFEN 600 MG TABLET (FP) PO PRN (10:23)
[2022-10-31] MEDS: METHOCARBAMOL 500 MG TABLET PO PRN (22:28)
[2022-10-31] MEDS: THIAMINE HCL 100 MG TABLET (FP) PO SCH (22:28)
[2022-10-31] MEDS: MELATONIN 5 MG TABLETS PO SCH (22:28)
[2022-11-01] MEDS ORDERED: diazePAM 5 MG TABLET PO ONE (06:00)
[2022-11-01] MEDS: PRENATAL VITAMINS W/ FOLIC ACID TABLET (FP) PO SCH (09:42)
[2022-11-01] MEDS: FAMOTIDINE 20 MG TABLET PO SCH (09:42)
[2022-11-01 13:09] VITALS: BP 105/64; PULSE 79; RESP 17; TEMP 97.8
== END 2022-11-01 14:25 | disposition other institution (70) | DRG 774 ==
LOC: YASAS 15:03 → Y3N 19:05
PROVIDERS: ADMIT Allergy & Immunology; ATTEND Surgery
PROC: HZ2ZZZZ Detoxification Services for Substance Abuse Treatment (ICD-10-PCS; principal; 2022-10-27)
DX: F10.230 Alcohol dependence with withdrawal, uncomplicated (principal); F14.20 Cocaine dependence, uncomplicated; F17.210 Nicotine dependence, cigarettes, uncomplicated; I10 Essential (primary) hypertension; J45.909 Unspecified asthma, uncomplicated; K21.9 Gastro-esophageal reflux disease without esophagitis; M16.12 Unilateral primary osteoarthritis, left hip; R73.03 Prediabetes
CPT/HCPCS: 36415; 80053; 85027; 86780; 87635

== ENCOUNTER 2022-11-01 08:46 | Inpatient (IN) | payer OTHER ==
[2022-11-01 14:45] VITALS: RESP 18
[2022-11-01] MEDS ORDERED: POLYETHYLENE GLYCOL (HEALTHYLAX) 3350 17 GM PACKET PO PRN (14:59)
[2022-11-01] MEDS ORDERED: COLLOIDAL OATMEAL 1 BAR EACH TP PRN (14:59)
[2022-11-01] MEDS ORDERED: MAGNESIUM HYDROX 2400MG/30ML ORAL SUSPENSION 30 ML CUP PO PRN (14:59)
[2022-11-01] MEDS ORDERED: BENZOCAINE/MENTHOL (CHLORASEPTIC ) LOZENGE MM PRN (14:59)
[2022-11-01] MEDS ORDERED: BENZONATATE 200 MG CAPSULE PO PRN (14:59)
[2022-11-01] MEDS ORDERED: IBUPROFEN 400 MG TABLET (FP) PO PRN (14:59)
[2022-11-01] MEDS ORDERED: AMMONIUM LACTATE 12% LOTION 225 GM BOTTLE TP PRN (14:59)
[2022-11-01] MEDS ORDERED: NALOXONE HCL (KLOXXADO) 8 MG SPRAY NS PRN (14:59)
[2022-11-01] MEDS ORDERED: LOPERAMIDE HCL 2 MG CAPSULE PO PRN (14:59)
[2022-11-01] MEDS ORDERED: hydrOXYzine PAMOATE 25 MG CAPSULE (FP) PO PRN (14:59)
[2022-11-01] MEDS ORDERED: NALOXONE HCL 0.4 MG/ML VIAL IVPUSH PRN (14:59)
[2022-11-01] MEDS ORDERED: MAG HYDROX/AL HYDROX/SIMETH 30 ML UNIT-DOSE CUP PO PRN (14:59)
[2022-11-01] MEDS ORDERED: guaiFENesin 600 MG TABLET.ER (FP) PO PRN (14:59)
[2022-11-01] MEDS ORDERED: NICOTINE 7 MG/24 HOURS TOPICAL PATCH TD PRN (14:59)
[2022-11-01] MEDS ORDERED: ACETAMINOPHEN 325 MG TABLET (FP) PO PRN (14:59)
[2022-11-01] MEDS ORDERED: NICOTINE POLACRILEX 4 MG GUM BUC PRN (14:59)
[2022-11-01] MEDS ORDERED: METHOCARBAMOL 500 MG TABLET PO PRN (14:59)
[2022-11-01] MEDS ORDERED: ALBUTEROL SO4 HFA INHALER IH PRN (15:02)
[2022-11-01] MEDS: FAMOTIDINE 20 MG TABLET PO SCH (21:12)
[2022-11-01] MEDS: MELATONIN 5 MG TABLETS PO SCH (21:12)
[2022-11-01] MEDS: THIAMINE HCL 100 MG TABLET (FP) PO SCH (21:12)
[2022-11-02] MEDS: FAMOTIDINE 20 MG TABLET PO SCH ×2 (09:54→21:22)
[2022-11-02] MEDS: PRENATAL VITAMINS W/ FOLIC ACID TABLET (FP) PO SCH (09:54)
[2022-11-02] MEDS: IBUPROFEN 600 MG TABLET (FP) PO PRN ×2 (09:55→16:24)
[2022-11-02] MEDS: THIAMINE HCL 100 MG TABLET (FP) PO SCH (21:22)
[2022-11-02] MEDS: MELATONIN 5 MG TABLETS PO SCH (21:22)
[2022-11-03] MEDS: FAMOTIDINE 20 MG TABLET PO SCH ×2 (10:35→21:08)
[2022-11-03] MEDS: PRENATAL VITAMINS W/ FOLIC ACID TABLET (FP) PO SCH (10:35)
[2022-11-03] MEDS: LACTULOSE 20 GM/30 ML UDC (FOR ORAL USE ONLY) PO SCH ×2 (14:26→21:08)
[2022-11-03] MEDS: THIAMINE HCL 100 MG TABLET (FP) PO SCH (21:08)
[2022-11-03] MEDS: MELATONIN 5 MG TABLETS PO SCH (21:08)
[2022-11-03] MEDS: IBUPROFEN 600 MG TABLET (FP) PO PRN (21:09)
[2022-11-04] MEDS: PRENATAL VITAMINS W/ FOLIC ACID TABLET (FP) PO SCH (09:50)
[2022-11-04] MEDS: LACTULOSE 20 GM/30 ML UDC (FOR ORAL USE ONLY) PO SCH ×2 (09:50→21:15)
[2022-11-04] MEDS: FAMOTIDINE 20 MG TABLET PO SCH ×2 (09:50→21:15)
[2022-11-04] MEDS: IBUPROFEN 600 MG TABLET (FP) PO PRN (09:51)
[2022-11-04] MEDS: THIAMINE HCL 100 MG TABLET (FP) PO SCH (21:15)
[2022-11-04] MEDS: MELATONIN 5 MG TABLETS PO SCH (21:15)
[2022-11-05 08:05] VITALS: BP 117/74; PULSE 80; TEMP 97.7
[2022-11-05] MEDS: PRENATAL VITAMINS W/ FOLIC ACID TABLET (FP) PO SCH (10:06)
[2022-11-05] MEDS: LACTULOSE 20 GM/30 ML UDC (FOR ORAL USE ONLY) PO SCH (10:07)
[2022-11-05] MEDS: FAMOTIDINE 20 MG TABLET PO SCH (10:07)
[2022-11-05] MEDS: IBUPROFEN 600 MG TABLET (FP) PO PRN (10:07)
== END 2022-11-05 14:56 | disposition left against medical advice (07) | DRG 770 ==
LOC: YASAS 08:46 → Y3W 10:08
PROVIDERS: ADMIT Allergy & Immunology; ATTEND Psychiatry & Neurology Pain Medicine
PROC: HZ42ZZZ Group Counseling for Substance Abuse Treatment, Cognitive-Behavioral (ICD-10-PCS; principal; 2022-10-29)
DX: F10.20 Alcohol dependence, uncomplicated (principal); F14.20 Cocaine dependence, uncomplicated; F17.210 Nicotine dependence, cigarettes, uncomplicated; E72.20 Disorder of urea cycle metabolism, unspecified; E78.6 Lipoprotein deficiency; I10 Essential (primary) hypertension; J21.9 Acute bronchiolitis, unspecified; H54.61 Unqualified visual loss, right eye, normal vision left eye; M16.12 Unilateral primary osteoarthritis, left hip; R73.03 Prediabetes
CPT/HCPCS: 36415; 82140; 86803

== ENCOUNTER 2023-01-12 19:50 | Inpatient (IN) | payer OTHER ==
[2023-01-12 20:16] VITALS: BMI 30.5
[2023-01-12] MEDS ORDERED: IBUPROFEN 400 MG TABLET (FP) PO PRN (22:30)
[2023-01-12] MEDS ORDERED: NICOTINE POLACRILEX 4 MG GUM BUC PRN (22:30)
[2023-01-12] MEDS ORDERED: BENZONATATE 200 MG CAPSULE PO PRN (22:30)
[2023-01-12] MEDS ORDERED: ACETAMINOPHEN 325 MG TABLET (FP) PO PRN (22:30)
[2023-01-12] MEDS ORDERED: NALOXONE HCL 0.4 MG/ML VIAL IM PRN (22:30)
[2023-01-12] MEDS ORDERED: MAG HYDROX/AL HYDROX/SIMETH 30 ML UNIT-DOSE CUP PO PRN (22:30)
[2023-01-12] MEDS ORDERED: ONDANSETRON *ODT* 4 MG TABLET SL PRN (22:30)
[2023-01-12] MEDS ORDERED: POLYETHYLENE GLYCOL (HEALTHYLAX) 3350 17 GM PACKET PO PRN (22:30)
[2023-01-12] MEDS ORDERED: BENZOCAINE/MENTHOL (CHLORASEPTIC ) LOZENGE MM PRN (22:30)
[2023-01-12] MEDS ORDERED: LORazepam 1 MG TABLET PO PRN (22:30)
[2023-01-12] MEDS ORDERED: guaiFENesin 600 MG TABLET.ER (FP) PO PRN (22:30)
[2023-01-12] MEDS ORDERED: hydrOXYzine PAMOATE 25 MG CAPSULE (FP) PO PRN (22:30)
[2023-01-12] MEDS ORDERED: MAGNESIUM HYDROX 2400MG/30ML ORAL SUSPENSION 30 ML CUP PO PRN (22:30)
[2023-01-12] MEDS ORDERED: DICYCLOMINE HCL 10 MG CAPSULE PO PRN (22:30)
[2023-01-12] MEDS ORDERED: NALOXONE HCL (KLOXXADO) 8 MG SPRAY NS PRN (22:30)
[2023-01-12] MEDS ORDERED: LOPERAMIDE HCL 2 MG CAPSULE PO PRN (22:30)
[2023-01-12] MEDS ORDERED: BISMUTH SUBSALICYLATE 524 MG/30 ML PO PRN (22:30)
[2023-01-12] MEDS ORDERED: ALBUTEROL SO4 HFA INHALER IH PRN (22:35)
[2023-01-13] MEDS: LORazepam 2 MG TABLET PO SCH ×5 (02:53→22:25)
[2023-01-13 10:22] LABS: HEMATOCRIT 46.4 % (35.4-49); HEMOGLOBIN 14.6 GM/dL (11.7-16.9); MCH 28.7 pg (25.7-33.7); MCHC 31.4 g/dl (32.0-35.9); MEAN CELL VOLUME 91.4 fl (80-96); MEAN PLT VOLUME 9.2 fl (7.5-11.1); PLATELET COUNT 191 10^3/uL (134-434); RBC 5.07 M/mm3 (4.00-5.60); RDW 14.2 % (11.9-15.9); WHITE BLOOD COUNT 6.9 K/mm3 (4.0-10.0)
[2023-01-13] MEDS: PRENATAL VITAMINS W/ FOLIC ACID TABLET (FP) PO SCH (10:39)
[2023-01-13] MEDS: NICOTINE 14 MG/24 HOURS TOPICAL PATCH TD SCH (10:42)
[2023-01-13 10:58] LABS: CHLORIDE 112 mmol/L (98-107); POTASSIUM 4.1 mmol/L (3.5-5.1); SODIUM 144 mmol/L (136-145)
[2023-01-13 11:03] LABS: CALCIUM 8.9 mg/dL (8.5-10.1)
[2023-01-13 11:04] LABS: ALBUMIN 3.5 g/dl (3.4-5.0); ANION GAP 6 mmol/L (4-13); BLOOD UREA NITROGEN 17.5 mg/dL (7-18); CO2 27 mmol/L (21-32); GLUCOSE,RANDOM 88 mg/dL (74-106)
[2023-01-13 11:06] LABS: SGOT/AST 14 U/L (15-37); SGPT/ALT 19 U/L (13-61)
[2023-01-13 11:07] LABS: BILIRUBIN,TOTAL 0.2 mg/dL (0.2-1); TOT PROT 7.1 g/dl (6.4-8.2)
[2023-01-13 11:09] LABS: ALK PHOS 71 U/L (45-117)
[2023-01-13] MEDS: FLUTICASONE/UMECLIDIN/VILANTER(200-62.5-25 TRELEGY ELLIPTA) INAHLER IH SCH (11:52)
[2023-01-13] MEDS: IBUPROFEN 600 MG TABLET (FP) PO PRN (22:24)
[2023-01-13] MEDS: FAMOTIDINE 20 MG TABLET PO SCH (22:25)
[2023-01-13] MEDS: MELATONIN 5 MG TABLETS PO SCH (22:25)
[2023-01-13] MEDS: THIAMINE HCL 100 MG TABLET (FP) PO SCH (22:25)
[2023-01-14] MEDS: LORazepam 1 MG TABLET PO SCH ×4 (05:55→22:11)
[2023-01-14] MEDS: NICOTINE 14 MG/24 HOURS TOPICAL PATCH TD SCH (10:16)
[2023-01-14] MEDS: FAMOTIDINE 20 MG TABLET PO SCH ×2 (10:17→22:10)
[2023-01-14] MEDS: FLUTICASONE/UMECLIDIN/VILANTER(200-62.5-25 TRELEGY ELLIPTA) INAHLER IH SCH (10:20)
[2023-01-14] MEDS: PRENATAL VITAMINS W/ FOLIC ACID TABLET (FP) PO SCH (10:21)
[2023-01-14] MEDS: IBUPROFEN 600 MG TABLET (FP) PO PRN (10:21)
[2023-01-14] MEDS: MELATONIN 5 MG TABLETS PO SCH (22:11)
[2023-01-14] MEDS: THIAMINE HCL 100 MG TABLET (FP) PO SCH (22:11)
[2023-01-15] MEDS ORDERED: LORazepam 0.5 MG TABLET PO PRN
[2023-01-15] MEDS: LORazepam 0.5 MG TABLET PO SCH ×4 (06:18→23:13)
[2023-01-15 06:42] VITALS: RESP 18
[2023-01-15] MEDS: NICOTINE 14 MG/24 HOURS TOPICAL PATCH TD SCH (10:14)
[2023-01-15] MEDS: PRENATAL VITAMINS W/ FOLIC ACID TABLET (FP) PO SCH (10:14)
[2023-01-15] MEDS: FAMOTIDINE 20 MG TABLET PO SCH ×2 (10:15→23:13)
[2023-01-15] MEDS: FLUTICASONE/UMECLIDIN/VILANTER(200-62.5-25 TRELEGY ELLIPTA) INAHLER IH SCH (10:20)
[2023-01-15] MEDS: IBUPROFEN 600 MG TABLET (FP) PO PRN (10:21)
[2023-01-15] MEDS: MELATONIN 5 MG TABLETS PO SCH (23:13)
[2023-01-15] MEDS: THIAMINE HCL 100 MG TABLET (FP) PO SCH (23:18)
[2023-01-16] MEDS ORDERED: LORazepam 0.5 MG TABLET PO ONE (05:00)
[2023-01-16 09:30] VITALS: BP 120/90; PULSE 84; TEMP 97.5
[2023-01-16] MEDS: PRENATAL VITAMINS W/ FOLIC ACID TABLET (FP) PO SCH (10:02)
[2023-01-16] MEDS: FAMOTIDINE 20 MG TABLET PO SCH (10:02)
[2023-01-16] MEDS: FLUTICASONE/UMECLIDIN/VILANTER(200-62.5-25 TRELEGY ELLIPTA) INAHLER IH SCH (10:03)
[2023-01-16] MEDS: NICOTINE 14 MG/24 HOURS TOPICAL PATCH TD SCH (10:03)
== END 2023-01-16 10:14 | disposition home or self-care (01) | DRG 774 ==
LOC: YASAS 19:50 → Y6N 01-13 02:29
PROVIDERS: ADMIT Allergy & Immunology; ATTEND Surgery
PROC: HZ2ZZZZ Detoxification Services for Substance Abuse Treatment (ICD-10-PCS; principal; 2023-01-13)
DX: F10.230 Alcohol dependence with withdrawal, uncomplicated (principal); F14.20 Cocaine dependence, uncomplicated; F17.210 Nicotine dependence, cigarettes, uncomplicated; J43.0 Unilateral pulmonary emphysema [MacLeod's syndrome]; J45.20 Mild intermittent asthma, uncomplicated; K21.9 Gastro-esophageal reflux disease without esophagitis; M16.12 Unilateral primary osteoarthritis, left hip; E66.09 Other obesity due to excess calories; Z68.30 Body mass index [BMI] 30.0-30.9, adult; Z99.89 Dependence on other enabling machines and devices
CPT/HCPCS: 36415; 80053; 80307; 85027; 86780; 87635; 87811; 93005; 93010

== ENCOUNTER 2023-06-25 23:26 | Inpatient (IN) | payer OTHER ==
[2023-06-26 01:35] VITALS: BMI 32.1
[2023-06-26] MEDS ORDERED: ACETAMINOPHEN 325 MG TABLET (FP) PO PRN (01:49)
[2023-06-26] MEDS ORDERED: DICYCLOMINE HCL 10 MG CAPSULE PO PRN (01:49)
[2023-06-26] MEDS ORDERED: POLYETHYLENE GLYCOL (HEALTHYLAX) 3350 17 GM PACKET PO PRN (01:49)
[2023-06-26] MEDS ORDERED: NALOXONE HCL (KLOXXADO) 8 MG SPRAY NS PRN (01:49)
[2023-06-26] MEDS ORDERED: NICOTINE POLACRILEX 2 MG LOZENGE BC PRN (01:49)
[2023-06-26] MEDS ORDERED: guaiFENesin 600 MG TABLET.ER (FP) PO PRN (01:49)
[2023-06-26] MEDS ORDERED: IBUPROFEN 400 MG TABLET (FP) PO PRN (01:49)
[2023-06-26] MEDS ORDERED: BISMUTH SUBSALICYLATE 524 MG/30 ML PO PRN (01:49)
[2023-06-26] MEDS ORDERED: LOPERAMIDE HCL 2 MG CAPSULE PO PRN (01:49)
[2023-06-26] MEDS ORDERED: MAGNESIUM HYDROX 2400MG/30ML ORAL SUSPENSION 30 ML CUP PO PRN (01:49)
[2023-06-26] MEDS ORDERED: BENZOCAINE/MENTHOL (CHLORASEPTIC ) LOZENGE MM PRN (01:49)
[2023-06-26] MEDS ORDERED: BENZONATATE 200 MG CAPSULE PO PRN (01:49)
[2023-06-26] MEDS ORDERED: NALOXONE HCL 0.4 MG/ML VIAL IM PRN (01:49)
[2023-06-26] MEDS ORDERED: MAG HYDROX/AL HYDROX/SIMETH 30 ML UNIT-DOSE CUP PO PRN (01:49)
[2023-06-26] MEDS ORDERED: ONDANSETRON *ODT* 4 MG TABLET SL PRN (01:49)
[2023-06-26] MEDS: NICOTINE 14 MG/24 HOURS TOPICAL PATCH TD SCH (10:19)
[2023-06-26] MEDS: PRENATAL VITAMINS W/ FOLIC ACID TABLET (FP) PO SCH (10:19)
[2023-06-26 11:02] LABS: CHLORIDE 110 mmol/L (98-107); POTASSIUM 3.9 mmol/L (3.5-5.1); SODIUM 143 mmol/L (136-145)
[2023-06-26 11:04] LABS: CALCIUM 9.1 mg/dL (8.5-10.1); HEMATOCRIT 44.4 % (35.4-49); HEMOGLOBIN 14.3 GM/dL (11.7-16.9); MCH 29.4 pg (25.7-33.7); MCHC 32.3 g/dl (32.0-35.9); MEAN CELL VOLUME 91.1 fl (80-96); MEAN PLT VOLUME 9.5 fl (7.5-11.1); PLATELET COUNT 195 10^3/uL (134-434); RBC 4.87 M/mm3 (4.00-5.60); RDW 14.3 % (11.9-15.9); WHITE BLOOD COUNT 6.9 K/mm3 (4.0-10.0)
[2023-06-26 11:05] LABS: ALBUMIN 3.2 g/dl (3.4-5.0); ANION GAP 5 mmol/L (4-13); BLOOD UREA NITROGEN 20.1 mg/dL (7-18); CO2 28 mmol/L (21-32); GLUCOSE,RANDOM 81 mg/dL (74-106)
[2023-06-26 11:08] LABS: SGOT/AST 14 U/L (15-37); SGPT/ALT 24 U/L (13-61)
[2023-06-26 11:09] LABS: TOT PROT 6.8 g/dl (6.4-8.2)
[2023-06-26 11:10] LABS: BILIRUBIN,TOTAL 0.2 mg/dL (0.2-1)
[2023-06-26 11:11] LABS: ALK PHOS 71 U/L (45-117)
[2023-06-26] MEDS: IBUPROFEN 600 MG TABLET (FP) PO PRN (20:32)
[2023-06-26] MEDS: MELATONIN 5 MG TABLETS PO SCH (22:05)
[2023-06-26] MEDS: THIAMINE 100 MG TABLET PO SCH (22:05)
[2023-06-27] MEDS: FLUTICASONE/UMECLIDIN/VILANTER(100-62.5-25 TRELEGY ELLIPTA) INAHLER IH SCH (12:30)
[2023-06-27 13:05] VITALS: BP 123/83; PULSE 90; RESP 16; TEMP 98.2
== END 2023-06-27 17:51 | disposition other institution (70) | DRG 774 ==
LOC: YASAS 23:26 → Y3N 06-26 02:17
PROVIDERS: ADMIT Allergy & Immunology; ATTEND Surgery
PROC: HZ2ZZZZ Detoxification Services for Substance Abuse Treatment (ICD-10-PCS; principal; 2023-06-26)
DX: F10.20 Alcohol dependence, uncomplicated (principal); F14.20 Cocaine dependence, uncomplicated; F17.210 Nicotine dependence, cigarettes, uncomplicated; F41.9 Anxiety disorder, unspecified; F32.A Depression, unspecified; J43.0 Unilateral pulmonary emphysema [MacLeod's syndrome]; M16.12 Unilateral primary osteoarthritis, left hip; Z99.89 Dependence on other enabling machines and devices; Z90.01 Acquired absence of eye
CPT/HCPCS: 36415; 80053; 80305; 80307; 85027; 86780; 87811

== ENCOUNTER 2023-06-27 18:11 | Inpatient (IN) | payer OTHER ==
[2023-06-27] MEDS ORDERED: MAGNESIUM HYDROX 2400MG/30ML ORAL SUSPENSION 30 ML CUP PO PRN (18:40)
[2023-06-27] MEDS ORDERED: BENZOCAINE/MENTHOL (CHLORASEPTIC ) LOZENGE MM PRN (18:40)
[2023-06-27] MEDS ORDERED: IBUPROFEN 400 MG TABLET (FP) PO PRN (18:40)
[2023-06-27] MEDS ORDERED: MAG HYDROX/AL HYDROX/SIMETH 30 ML UNIT-DOSE CUP PO PRN (18:40)
[2023-06-27] MEDS ORDERED: hydrOXYzine PAMOATE 25 MG CAPSULE (FP) PO PRN (18:40)
[2023-06-27] MEDS ORDERED: POLYETHYLENE GLYCOL (HEALTHYLAX) 3350 17 GM PACKET PO PRN (18:40)
[2023-06-27] MEDS ORDERED: LOPERAMIDE HCL 2 MG CAPSULE PO PRN (18:40)
[2023-06-27] MEDS ORDERED: BENZONATATE 200 MG CAPSULE PO PRN (18:40)
[2023-06-27] MEDS ORDERED: guaiFENesin 600 MG TABLET.ER (FP) PO PRN (18:40)
[2023-06-27] MEDS ORDERED: NICOTINE POLACRILEX 2 MG GUM BUC PRN (18:40)
[2023-06-27] MEDS ORDERED: NALOXONE (NYS OPIOID OVERDOSE PROGRAM) 4 MG/0.1 ML SPRAY NS PRN (18:40)
[2023-06-27] MEDS ORDERED: NALOXONE HCL 0.4 MG/ML VIAL IVPUSH PRN (18:40)
[2023-06-27] MEDS ORDERED: ACETAMINOPHEN 325 MG TABLET (FP) PO PRN (18:40)
[2023-06-27] MEDS: METHOCARBAMOL 500 MG TABLET PO PRN (21:27)
[2023-06-27] MEDS: THIAMINE 100 MG TABLET PO SCH (21:27)
[2023-06-27] MEDS: IBUPROFEN 600 MG TABLET (FP) PO PRN (21:27)
[2023-06-27] MEDS: MELATONIN 5 MG TABLETS PO SCH (21:28)
[2023-06-28 06:53] VITALS: TEMP 97.3
[2023-06-28] MEDS: PRENATAL VITAMINS W/ FOLIC ACID TABLET (FP) PO SCH (10:39)
[2023-06-28] MEDS: FLUTICASONE/UMECLIDIN/VILANTER(100-62.5-25 TRELEGY ELLIPTA) INAHLER IH SCH (10:39)
[2023-06-30 06:51] VITALS: BP 120/73; PULSE 71; RESP 18
== END 2023-06-30 10:06 | disposition home or self-care (01) | DRG 772 ==
LOC: YASAS 18:11 → Y3W 18:13
PROVIDERS: ADMIT Allergy & Immunology; ATTEND Psychiatry & Neurology Pain Medicine
PROC: HZ42ZZZ Group Counseling for Substance Abuse Treatment, Cognitive-Behavioral (ICD-10-PCS; principal; 2023-06-27)
DX: F10.20 Alcohol dependence, uncomplicated (principal); F14.20 Cocaine dependence, uncomplicated; F16.20 Hallucinogen dependence, uncomplicated; F17.210 Nicotine dependence, cigarettes, uncomplicated; J43.0 Unilateral pulmonary emphysema [MacLeod's syndrome]; M16.12 Unilateral primary osteoarthritis, left hip; Z99.89 Dependence on other enabling machines and devices; Z86.73 Personal history of transient ischemic attack (TIA), and cerebral infarction without residual deficits; Z90.01 Acquired absence of eye

== ENCOUNTER 2023-09-18 18:07 | Inpatient (IN) | payer OTHER ==
[2023-09-18 18:33] VITALS: BMI 30.7
[2023-09-18] MEDS ORDERED: ONDANSETRON *ODT* 4 MG TABLET SL PRN (19:36)
[2023-09-18] MEDS ORDERED: BENZONATATE 200 MG CAPSULE PO PRN (19:36)
[2023-09-18] MEDS ORDERED: guaiFENesin 600 MG TABLET.ER (FP) PO PRN (19:36)
[2023-09-18] MEDS ORDERED: BISMUTH SUBSALICYLATE 524 MG/30 ML PO PRN (19:36)
[2023-09-18] MEDS ORDERED: LOPERAMIDE HCL 2 MG CAPSULE PO PRN (19:36)
[2023-09-18] MEDS ORDERED: NICOTINE POLACRILEX 2 MG GUM BC PRN (19:36)
[2023-09-18] MEDS ORDERED: DICYCLOMINE HCL 10 MG CAPSULE PO PRN (19:36)
[2023-09-18] MEDS ORDERED: MAGNESIUM HYDROX 2400MG/30ML ORAL SUSPENSION 30 ML CUP PO PRN (19:36)
[2023-09-18] MEDS ORDERED: IBUPROFEN 400 MG TABLET (FP) PO PRN (19:36)
[2023-09-18] MEDS ORDERED: BENZOCAINE/MENTHOL (CHLORASEPTIC ) LOZENGE MM PRN (19:36)
[2023-09-18] MEDS ORDERED: ACETAMINOPHEN 325 MG TABLET (FP) PO PRN (19:36)
[2023-09-18] MEDS: THIAMINE 100 MG TABLET PO SCH (23:18)
[2023-09-18] MEDS: MELATONIN 5 MG TABLETS PO SCH (23:18)
[2023-09-19] MEDS: PRENATAL VITAMINS W/ FOLIC ACID TABLET (FP) PO SCH (10:51)
[2023-09-19] MEDS: IBUPROFEN 600 MG TABLET (FP) PO PRN (10:53)
[2023-09-19] MEDS: FLUTICASONE/UMECLIDIN/VILANTER(100-62.5-25 TRELEGY ELLIPTA) INAHLER IH SCH (10:54)
[2023-09-19 11:57] LABS: HEMATOCRIT 40.6 % (35.4-49); HEMOGLOBIN 13.5 GM/dL (11.7-16.9); MCH 29.8 pg (25.7-33.7); MCHC 33.2 g/dl (32.0-35.9); MEAN CELL VOLUME 89.6 fl (80-96); MEAN PLT VOLUME 9.2 fl (7.5-11.1); PLATELET COUNT 199 10^3/uL (134-434); RBC 4.54 M/mm3 (4.00-5.60); RDW 14.8 % (11.9-15.9); WHITE BLOOD COUNT 6.5 K/mm3 (4.0-10.0)
[2023-09-19 11:59] LABS: POTASSIUM 4.4 mmol/L (3.5-5.1)
[2023-09-19 12:10] LABS: ALBUMIN 3.4 g/dl (3.4-5.0); BLOOD UREA NITROGEN 21.8 mg/dL (7-18)
[2023-09-19 12:14] LABS: BILIRUBIN,TOTAL 0.1 mg/dL (0.2-1); TOT PROT 6.9 g/dl (6.4-8.2)
[2023-09-19] MEDS: METHOCARBAMOL 500 MG TABLET PO PRN (15:01)
[2023-09-19] MEDS: diazePAM 5 MG TABLET PO SCH (17:25)
[2023-09-20] MEDS: diazePAM 5 MG TABLET PO PRN (09:36)
[2023-09-20] MEDS: hydrOXYzine PAMOATE 25 MG CAPSULE (FP) PO PRN (09:36)
[2023-09-21] MEDS: diazePAM 5 MG TABLET PO SCH (05:49)
[2023-09-22] MEDS: diazePAM 5 MG TABLET PO SCH (06:12)
[2023-09-23] MEDS: diazePAM 5 MG TABLET PO ONE (05:41)
[2023-09-23 06:18] VITALS: RESP 17
[2023-09-23 09:07] VITALS: BP 113/68; PULSE 83; TEMP 97.8
== END 2023-09-23 10:00 | disposition other institution (70) | DRG 773 ==
LOC: YASAS 18:07 → Y6N 20:31
PROVIDERS: ADMIT Allergy & Immunology; ATTEND Surgery
PROC: HZ2ZZZZ Detoxification Services for Substance Abuse Treatment (ICD-10-PCS; principal; 2023-09-18)
DX: F10.230 Alcohol dependence with withdrawal, uncomplicated (principal); F11.20 Opioid dependence, uncomplicated; F14.20 Cocaine dependence, uncomplicated; F12.20 Cannabis dependence, uncomplicated; F17.210 Nicotine dependence, cigarettes, uncomplicated; F19.24 Other psychoactive substance dependence with psychoactive substance-induced mood disorder; F39 Unspecified mood [affective] disorder; G47.33 Obstructive sleep apnea (adult) (pediatric); I10 Essential (primary) hypertension; J43.0 Unilateral pulmonary emphysema [MacLeod's syndrome]; J45.20 Mild intermittent asthma, uncomplicated; K21.9 Gastro-esophageal reflux disease without esophagitis; E11.9 Type 2 diabetes mellitus without complications; M16.12 Unilateral primary osteoarthritis, left hip; Z86.73 Personal history of transient ischemic attack (TIA), and cerebral infarction without residual deficits; Z56.0 Unemployment, unspecified; Z59.00 Homelessness unspecified
CPT/HCPCS: 36415; 80053; 80305; 80307; 85027; 86780; 93005; 93010

== ENCOUNTER 2023-11-04 18:17 | Inpatient (IN) | payer OTHER ==
[2023-11-04 19:19] VITALS: BMI 30.7
[2023-11-05] MEDS ORDERED: IBUPROFEN 400 MG TABLET (FP) PO PRN (01:23)
[2023-11-05] MEDS ORDERED: BENZONATATE 200 MG CAPSULE PO PRN (01:23)
[2023-11-05] MEDS ORDERED: MAGNESIUM HYDROX 2400MG/30ML ORAL SUSPENSION 30 ML CUP PO PRN (01:23)
[2023-11-05] MEDS ORDERED: ACETAMINOPHEN 325 MG TABLET (FP) PO PRN (01:23)
[2023-11-05] MEDS ORDERED: POLYETHYLENE GLYCOL (HEALTHYLAX) 3350 17 GM PACKET PO PRN (01:23)
[2023-11-05] MEDS ORDERED: BENZOCAINE/MENTHOL (CHLORASEPTIC ) LOZENGE MM PRN (01:23)
[2023-11-05] MEDS ORDERED: LOPERAMIDE HCL 2 MG CAPSULE PO PRN (01:23)
[2023-11-05] MEDS ORDERED: ONDANSETRON *ODT* 4 MG TABLET SL PRN (01:23)
[2023-11-05] MEDS ORDERED: METHOCARBAMOL 500 MG TABLET PO PRN (01:23)
[2023-11-05] MEDS ORDERED: DICYCLOMINE HCL 10 MG CAPSULE PO PRN (01:23)
[2023-11-05] MEDS ORDERED: NALOXONE (NARCAN) HCL 4 MG/0.1 ML SPRAY NS PRN (01:23)
[2023-11-05] MEDS ORDERED: NALOXONE HCL 0.4 MG/ML VIAL IM PRN (01:23)
[2023-11-05] MEDS ORDERED: guaiFENesin 600 MG TABLET.ER (FP) PO PRN (01:23)
[2023-11-05] MEDS ORDERED: MAG HYDROX/AL HYDROX/SIMETH 30 ML UNIT-DOSE CUP PO PRN (01:23)
[2023-11-05] MEDS ORDERED: NICOTINE POLACRILEX 2 MG GUM BUC PRN (01:23)
[2023-11-05] MEDS ORDERED: BISMUTH SUBSALICYLATE 524 MG/30 ML PO PRN (01:23)
[2023-11-05] MEDS: NICOTINE 21 MG/24 HOURS TOPICAL PATCH TD SCH (10:23)
[2023-11-05] MEDS: PRENATAL VITAMINS W/ FOLIC ACID TABLET (FP) PO SCH (10:23)
[2023-11-05] MEDS: IBUPROFEN 600 MG TABLET (FP) PO PRN (20:36)
[2023-11-05] MEDS: MELATONIN 5 MG TABLETS PO SCH (22:55)
[2023-11-05] MEDS: THIAMINE 100 MG TABLET PO SCH (22:55)
[2023-11-07 17:19] VITALS: RESP 18
[2023-11-07] MEDS: hydrOXYzine PAMOATE 25 MG CAPSULE (FP) PO PRN (17:20)
[2023-11-08 08:59] VITALS: BP 130/79; PULSE 61; TEMP 98.2
[2023-11-08] MEDS: FLUTICASONE/UMECLIDIN/VILANTER(100-62.5-25 TRELEGY ELLIPTA) INAHLER IH SCH (09:41)
== END 2023-11-08 09:40 | disposition home or self-care (01) | DRG 773 ==
LOC: YASAS 18:17 → Y6N 11-05 11:15
PROVIDERS: ADMIT Surgery; ATTEND Family Medicine Addiction Medicine
PROC: HZ2ZZZZ Detoxification Services for Substance Abuse Treatment (ICD-10-PCS; principal; 2023-11-05)
DX: F11.23 Opioid dependence with withdrawal (principal); F10.230 Alcohol dependence with withdrawal, uncomplicated; F14.20 Cocaine dependence, uncomplicated; F17.210 Nicotine dependence, cigarettes, uncomplicated; F31.9 Bipolar disorder, unspecified; F43.10 Post-traumatic stress disorder, unspecified; F41.9 Anxiety disorder, unspecified; F32.A Depression, unspecified; G47.33 Obstructive sleep apnea (adult) (pediatric); J45.20 Mild intermittent asthma, uncomplicated; R73.03 Prediabetes; Z99.89 Dependence on other enabling machines and devices; Z59.00 Homelessness unspecified
CPT/HCPCS: 80305; 80307; 82962; 93005; 93010

== ENCOUNTER 2024-01-19 20:23 | Inpatient (IN) | payer OTHER ==
[2024-01-19 21:28] VITALS: BMI 27.8
[2024-01-19] MEDS ORDERED: guaiFENesin 600 MG TABLET.ER (FP) PO PRN (21:52)
[2024-01-19] MEDS ORDERED: POLYETHYLENE GLYCOL (HEALTHYLAX) 3350 17 GM PACKET PO PRN (21:52)
[2024-01-19] MEDS ORDERED: NICOTINE POLACRILEX 2 MG LOZENGE BC PRN (21:52)
[2024-01-19] MEDS ORDERED: MAGNESIUM HYDROX 2400MG/30ML ORAL SUSPENSION 30 ML CUP PO PRN (21:52)
[2024-01-19] MEDS ORDERED: ACETAMINOPHEN 325 MG TABLET (FP) PO PRN (21:52)
[2024-01-19] MEDS ORDERED: BENZONATATE 200 MG CAPSULE PO PRN (21:52)
[2024-01-19] MEDS ORDERED: MAG HYDROX/AL HYDROX/SIMETH 30 ML UNIT-DOSE CUP PO PRN (21:52)
[2024-01-19] MEDS ORDERED: BENZOCAINE/MENTHOL (CHLORASEPTIC ) LOZENGE MM PRN (21:52)
[2024-01-19] MEDS ORDERED: NICOTINE POLACRILEX 2 MG GUM BUC PRN (21:52)
[2024-01-19] MEDS ORDERED: NALOXONE (NARCAN) HCL 4 MG/0.1 ML SPRAY NS PRN (21:52)
[2024-01-19] MEDS ORDERED: P-EPHED 60MG/TRIPROLIDI 2.5MG TABLET PO PRN (21:52)
[2024-01-19] MEDS ORDERED: hydrOXYzine PAMOATE 25 MG CAPSULE (FP) PO PRN (21:52)
[2024-01-20] MEDS: THIAMINE 100 MG TABLET PO SCH (01:10)
[2024-01-20] MEDS: MELATONIN 5 MG TABLETS PO SCH (01:10)
[2024-01-20] MEDS: IBUPROFEN 600 MG TABLET (FP) PO PRN (09:36)
[2024-01-20] MEDS: FLUTICASONE/UMECLIDIN/VILANTER(100-62.5-25 TRELEGY ELLIPTA) INAHLER IH SCH (09:36)
[2024-01-20] MEDS: PRENATAL VITAMINS W/ FOLIC ACID TABLET (FP) PO SCH (09:37)
[2024-01-20 11:18] LABS: POTASSIUM 3.8 mmol/L (3.5-5.1)
[2024-01-20 11:19] LABS: MCHC 31.6 g/dl (32.0-35.9); MEAN CELL VOLUME 91.7 fl (80-96); MEAN PLT VOLUME 10.4 fl (7.5-11.1); PLATELET COUNT 173 10^3/uL (134-434); RBC 4.47 M/mm3 (4.00-5.60); RDW 14.5 % (11.9-15.9); WHITE BLOOD COUNT 5.6 K/mm3 (4.0-10.0)
[2024-01-20 11:23] LABS: CALCIUM 8.4 mg/dL (8.5-10.1)
[2024-01-20 11:24] LABS: ALBUMIN 2.8 g/dl (3.4-5.0); BLOOD UREA NITROGEN 20.4 mg/dL (7-18)
[2024-01-20 11:28] LABS: BILIRUBIN,TOTAL 0.3 mg/dL (0.2-1)
[2024-01-20] MEDS: PNEUMOC 20-VAL CONJ-DIP CRM/PF 0.5 ML SYRINGE IM ONE (11:43)
[2024-01-21 13:36] LABS: URINE APPEARANCE CLEAR; URINE BILIRUBIN NEGATIVE (NEGATIVE); URINE COLOR YELLOW; URINE GLUCOSE (UA) NEGATIVE (NEGATIVE); URINE KETONE NEGATIVE (NEGATIVE); URINE LEUK ESTERASE NEGATIVE (NEGATIVE); URINE NITRITE NEGATIVE (NEGATIVE); URINE PROTEIN NEGATIVE (NEGATIVE); URINE UROBILINOGEN 0.2 mg/dL (0.2-1.0)
[2024-01-26] MEDS: LOPERAMIDE HCL 2 MG CAPSULE PO PRN (22:04)
[2024-01-28] MEDS: MELATONIN 5 MG TABLETS PO SCH (21:40)
[2024-01-29 06:27] VITALS: RESP 16; TEMP 97.6
[2024-01-29] MEDS: IBUPROFEN 400 MG TABLET (FP) PO PRN (11:20)
[2024-01-30 07:09] VITALS: BP 133/86; PULSE 73
[2024-01-30] MEDS ORDERED: NALOXONE (NYS OPIOID OVERDOSE PROGRAM) 4 MG/0.1 ML SPRAY NS PRN (12:35)
[2024-01-30] MEDS ORDERED: NALOXONE (NYS OPIOID OVERDOSE PROGRAM) 4 MG/0.1 ML SPRAY NS SCH (15:45)
== END 2024-01-30 13:34 | disposition left against medical advice (07) | DRG 772 ==
LOC: YASAS 20:23 → Y3NR 22:32 → Y3W 01-20 11:39
PROVIDERS: ADMIT Psychiatry & Neurology Pain Medicine; ATTEND Psychiatry & Neurology Pain Medicine
PROC: HZ42ZZZ Group Counseling for Substance Abuse Treatment, Cognitive-Behavioral (ICD-10-PCS; principal; 2024-01-19)
DX: F14.20 Cocaine dependence, uncomplicated (principal); F12.20 Cannabis dependence, uncomplicated; F17.210 Nicotine dependence, cigarettes, uncomplicated; F31.9 Bipolar disorder, unspecified; F41.9 Anxiety disorder, unspecified; F43.10 Post-traumatic stress disorder, unspecified; F19.24 Other psychoactive substance dependence with psychoactive substance-induced mood disorder; G47.33 Obstructive sleep apnea (adult) (pediatric); I10 Essential (primary) hypertension; J43.0 Unilateral pulmonary emphysema [MacLeod's syndrome]; J45.20 Mild intermittent asthma, uncomplicated; K21.9 Gastro-esophageal reflux disease without esophagitis; M17.12 Unilateral primary osteoarthritis, left knee; R73.03 Prediabetes; F91.8 Other conduct disorders; Z91.199 Patient's noncompliance with other medical treatment and regimen due to unspecified reason
CPT/HCPCS: 36415; 80053; 80305; 80307; 81003; 85027; 86780; 87811; 93005; 93010